=== PATIENT | male | born 1935 | race Caucasian/White ===

== ENCOUNTER 2017-10-03 02:18 | Outpatient (CLI) | payer MEDICARE ==
[~2017-10-03 02:18] MED LIST: ALBU8.5H8 IH; ASPI81TA52 PO; CARV-50 PO; CYCL-394 PO; FENO145T38 PO; FURO40TA4 PO; KETOCONAZOLE; LOSA25TA96 PO; METF500T PO; OMEP40CA37 PO; PIOG45TA5 PO; PRAV40TA3 PO; SPIR25TA5 PO
== END 2017-10-03 23:59 | disposition home or self-care (01) ==
LOC: DIABETIC 02:18
PROVIDERS: ATTEND Specialist
DX: E11.9 Type 2 diabetes mellitus without complications (principal); J44.9 Chronic obstructive pulmonary disease, unspecified; I10 Essential (primary) hypertension; Z79.899 Other long term (current) drug therapy; Z79.82 Long term (current) use of aspirin
CPT/HCPCS: G0108

== ENCOUNTER 2020-11-12 14:54 | Outpatient (CLI) | payer MEDICARE ==
[~2020-11-12 14:54] MED LIST changes: +ALBU8.5H17 IH; -ALBU8.5H8 IH; +OMEP40CA21 PO; -OMEP40CA37 PO
[2020-11-12 15:18] LABS: ABG BASE EXCESS -0.3 mmol/L (-2.0-2.0); ABG HCO3 24.1 mmol/L (22.0-26.0); ABG OXYGEN SATURATION 95.2 % (94-97); ABG PCO2 (T) 38.7 mmHg (35.0-48.0); ABG PO2 (T) 77.6 mmHg (75.0-100.0); ALLEN'S TEST POSITIVE; FCOHb 0.7 % (0.0-3.9); FMetHb 0.1 % (0.0-1.5); FO2Hb 94.4 % (94-97); TOTAL HEMOGLOBIN 13.4 G/dl (14.0-18.0)
== END 2020-11-12 23:59 | disposition home or self-care (01) ==
LOC: RT 14:54
PROVIDERS: ATTEND Family Medicine
DX: J96.10 Chronic respiratory failure, unspecified whether with hypoxia or hypercapnia (principal); G47.00 Insomnia, unspecified
CPT/HCPCS: 36600; 82803; 85018

== ENCOUNTER 2020-12-25 15:58 | Day surgery (SDC) | payer MEDICARE ==
[~2020-12-25] VITALS: Ht 177.8 cm; Wt 62.2 kg
[2020-12-25] VITALS (11 sets, daily range): BP systolic 110–131; BP diastolic 58–84
[2020-12-25 11:43] LABS: BASOPHILS # (AUTO) 0.1 X10'3 (0-0.2); EOSINOPHILS # (AUTO) 0.3 X10'3 (0-0.9); EOSINOPHILS % (AUTO) 6.1 % (0-6); HEMATOCRIT 40.3 % (42.0-52.0); LYMPHOCYTES # (AUTO) 1.1 X10'3 (1.1-4.8); LYMPHOCYTES % (AUTO) 20.2 % (21-51); MEAN CORPUSCULAR HEMOGLOBIN 25.4 PG (27.0-31.0); MEAN CORPUSCULAR HGB CONC 32.3 g/dL (33.0-36.5); MEAN CORPUSCULAR VOLUME 78.6 FL (78-98); MEAN PLATELET VOLUME 8.6 FL (7.4-10.4); MONOCYTES # (AUTO) 0.4 X10'3 (0-0.9); MONOCYTES % (AUTO) 7.7 % (2-12); NEUTROPHILS # (AUTO) 3.6 X10'3 (1.8-7.7); PLATELET COUNT 221 X10'3 (140-440); RED BLOOD COUNT 5.12 X10'6 (4.70-6.10); RED CELL DISTRIBUTION WIDTH 16.3 % (11.5-14.5); WHITE BLOOD COUNT 5.6 X10'3 (4.5-11.0)
[2020-12-25 11:49] LABS: ALBUMIN 3.7 G/DL (3.4-5.0); ANION GAP 10 (8-16); BLOOD UREA NITROGEN 25 MG/DL (7-18); BUN/CREATININE RATIO 16.9 (5.4-32.0); CALCIUM 8.3 MG/DL (8.5-10.1); CHLORIDE 107 MMOL/L (99-107); CREATININE 1.48 MG/DL (0.60-1.10); GLUCOSE 125 MG/DL (70-104); MAGNESIUM 2.2 MG/DL (1.5-2.4); POTASSIUM 4.2 MMOL/L (3.5-5.1); SODIUM 146 MMOL/L (135-145); TOTAL CARBON DIOXIDE 29.3 MMOL/L (24-32); eGFR 45 ML/MIN
--- NOTE | 2020-12-25 13:24 | NUR ---
Verbal order for 90mg of Maalox received by this RN from Dr. Preston during labourers procedure. 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
[~2020-12-25 15:58] MED LIST changes: +AMIO200T62 PO; +APIX5TAB3 PO; +BACL-11 PO; +CITA-124 PEG; +DIPH25CA51 PO; +FINA5TAB11 PO; +FLO0.4C PO; +FLUT1DIS11 INH; +GLIM4TAB7 PO; +INSU300I3 SUBCUT; +LIDOcaine 1% (10mg/ml)w/preservative injection 20ml MDV ONE; +LIDOcaine/PRILOcaine 5gm cream TP ONE; +MAGN250T11 PO; +POTA-197 PO; +PRAM0.129 PO; +SACU1TAB PO; +TRAZ-251 PO; +clopidogrel 300mg tablet ONE; +diphenhydrAMINE 25mg capsule PO PRN; +diphenhydrAMINE 50 mg/ml inj ONE; +fentaNYL/PF 50MCG/1 ML 2ML syringe ONE; +furosemide 40mg/4ml inj ONE; +heparin 1,000unit/ml 10ml vial 10 ML ONE; +iohexol 350 MG/ML 50ML vial IV ONE; +iohexol 350MG/ML 100ml bottle IV ONE; +mag hydrox/Alum hydrox/simeth 30ml oral suspension PO ONE; +midazolam 1 mg/ML 2ml injection ONE; +nitroGLYCERIN 0.4mg SUBLingual tab SL ONE; +nitroGLYCERIN-Tridil 50MG/D5W 250 ML IV ONE; +normal saline 1,000 ML IV SCH; +verapamil 2.5 mg/ml inj IV ONE
[2020-12-25] MEDS ORDERED: KETO15CR2 TP (16:09)
[2020-12-25] MEDS ORDERED: insulin Lispro (HumaLOG) vial - multi-dose SQ SCH (17:30)
[2020-12-25] MEDS ORDERED: glucagon, human recombinant 1mg kit SUBCUT PRN (17:30)
[2020-12-25] MEDS ORDERED: dextrose 50%-water 50ml dispensing syringe IV PRN ×2 (17:30)
[2020-12-25] MEDS ORDERED: MESSAGE TO PHARMACY PO ONE (17:30)
[2020-12-25] MEDS ORDERED: dextrose ORAL solution 15 GM/59 ML bottle PO PRN ×2 (17:30)
[2020-12-25] MEDS ORDERED: albuterol 2.5 MG/3 ML nebule NEB PRN (17:40)
--- NOTE | 2020-12-25 17:55 | NUR ---
pt turned in bed, changed linens, skin to coccyx intact , n o redness, heels jose luis, repositioned in bed
[2020-12-25] MEDS ORDERED: pantoprazole 40mg Tablet.DR PO STA (17:57)
--- NOTE | 2020-12-25 17:59 | NUR ---
received pt abot 15 min ago from Nicolasa MART . Pt c/o chest discomfort. no other symptoms, bg 103, 110/58, 96%. 67, 98.6, 16rr. contacted MD herrera at this time 1759 and received orders
--- NOTE | 2020-12-25 18:11 | NUR ---
radial site to R hand intact, instructed to deflate after midnoc since pt had elequis recently. r hand has good pleth on thumb and cap refill<2 sec and warm
--- NOTE | 2020-12-25 18:36 | NUR ---
Problems reprioritized. Patient report given at bedside, questions answered & plan of care reviewed , R radial site viewed and stable with Kaitlynn MART.
[2020-12-25] MEDS ORDERED: mag hydrox/Alum hydrox/simeth 30ml oral suspension PO ONE ×3 (19:30)
[2020-12-25] MEDS: tamsulosin 0.4mg capsule PO SCH (19:35)
[2020-12-25] MEDS: potassium Cl 20 mEq SR tablet PO SCH (19:35)
[2020-12-25] MEDS: furosemide 20MG tablet PO SCH (19:36)
[2020-12-25] MEDS: carVEDilol 12.5mg tablet PO SCH (19:36)
[2020-12-25] MEDS ORDERED: SALMETEROL INH SCH (20:00)
[2020-12-25] MEDS ORDERED: FLUTICASONE INH SCH (20:00)
[2020-12-25] MEDS: budesonide 0.5mg/2ml UD nebule IH SCH (20:00)
[2020-12-25] MEDS ORDERED: ketoconazole 2% cream 15gm TP SCH (20:00)
[2020-12-25] MEDS: pramipexole 0.25mg tablet PO SCH (20:43)
[2020-12-25] MEDS: normal saline 1000ml 1,000 ML IV SCH (20:45)
[2020-12-25] MEDS ORDERED: zolpidem 5mg tablet PO SCH (21:00)
[2020-12-25] MEDS ORDERED: traZODone 50mg tablet PO SCH (21:00)
[2020-12-25] MEDS ORDERED: baclofen 10mg tablet PO SCH (21:00)
[2020-12-25] MEDS ORDERED: insulin glargine (Lantus) pen - multi-dose SQ SCH (21:00)
[2020-12-26] MEDS: normal saline 1000ml 1,000 ML IV SCH ×2 (01:23→05:45)
[2020-12-26 02:00] VITALS: BP 116/58
[2020-12-26] MEDS: albuterol 2.5 MG/3 ML nebule NEB SCH ×2 (03:39→07:59)
[2020-12-26 06:00] VITALS: BP 129/67
--- NOTE | 2020-12-26 06:19 | NUR ---
Problems reprioritized. Patient report given, questions answered & plan of care reviewed with BARRON Patiño.
--- NOTE | 2020-12-26 06:20 | NUR ---
Rt paged, states his breathing "isn't great" , LS tight. sat 94%, r radial site cdi no hematoma.
[2020-12-26] MEDS ORDERED: clopidogrel 75mg tablet PO SCH ×2 (07:00→08:00)
--- NOTE | 2020-12-26 07:31 | NUR ---
3rd page since 609 and 1 call for RT. No reply yet. pt c/o sob. charge nurse notified
[2020-12-26] MEDS: tamsulosin 0.4mg capsule PO SCH (07:39)
[2020-12-26 07:41] VITALS: BP_SYST 124
[2020-12-26] MEDS: carVEDilol 12.5mg tablet PO SCH (07:41)
[2020-12-26] MEDS: furosemide 20MG tablet PO SCH (07:41)
[2020-12-26] MEDS: pramipexole 0.25mg tablet PO SCH (07:42)
[2020-12-26] MEDS: potassium Cl 20 mEq SR tablet PO SCH (07:50)
[2020-12-26] MEDS: budesonide 0.5mg/2ml UD nebule IH SCH (07:59)
[2020-12-26] MEDS ORDERED: citalopram 20mg tablet PEG SCH (08:00)
[2020-12-26] MEDS ORDERED: losartan 50mg tablet PO SCH (08:00)
[2020-12-26] MEDS ORDERED: amiodarone 200mg tablet PO SCH (08:00)
[2020-12-26] MEDS ORDERED: sacubitril/valsartan 24mg-26mg tablet PO SCH (08:00)
[2020-12-26] MEDS ORDERED: spironolactone 25 MG tablet PO SCH (08:00)
[2020-12-26] MEDS ORDERED: atorvastatin 10mg tablet PO SCH (08:00)
[2020-12-26] MEDS ORDERED: pantoprazole 40mg Tablet.DR PO SCH (08:00)
[2020-12-26] MEDS ORDERED: diphenhydrAMINE 25mg capsule PO SCH (08:00)
[2020-12-26] MEDS ORDERED: finasteride 5mg tablet PO SCH (08:00)
[2020-12-26] MEDS ORDERED: fenofibrate 145mg tablet PO SCH (08:00)
[2020-12-26] MEDS ORDERED: magnesium oxide 400mg tablet PO SCH (08:00)
[2020-12-26] MEDS ORDERED: INSULIN GLARGINE HUM REC ANLOG 80 UNIT SUBCUT SCH (08:00)
[2020-12-26] MEDS ORDERED: CLOP75TA34 PO (11:24)
--- NOTE | 2020-12-26 12:00 | NUR ---
1130- discharge [facility] completed, provided info for next meds due, iv removed cath intact and site stable, R radial puncture site cdi and no hematoma, vss, pt eating, ambulated 100 feet with walker ( has home walker). no longer sob after rt tx, has inhaler at home he says. void in toilet ok. son present, reviewed meds with pt and son as well as signs of bleeding and infection to report , lifting restrictions with R hand and no submersion, shower ok.
[2020-12-26] MEDS ORDERED: apixaban 5mg tablet PO SCH (16:00)
== END 2020-12-26 12:00 | disposition home or self-care (01) ==
LOC: PCU 3S 15:58 → SSTAY O 15:58
PROVIDERS: ATTEND Internal Medicine Cardiovascular Disease
DX: R94.39 Abnormal result of other cardiovascular function study (principal); R07.89 Other chest pain; I25.119 Atherosclerotic heart disease of native coronary artery with unspecified angina pectoris; I25.2 Old myocardial infarction; I25.5 Ischemic cardiomyopathy; E78.5 Hyperlipidemia, unspecified; I10 Essential (primary) hypertension; K21.9 Gastro-esophageal reflux disease without esophagitis; M19.90 Unspecified osteoarthritis, unspecified site; J44.9 Chronic obstructive pulmonary disease, unspecified; E11.9 Type 2 diabetes mellitus without complications; I48.91 Unspecified atrial fibrillation; Z85.51 Personal history of malignant neoplasm of bladder; Z88.8 Allergy status to other drugs, medicaments and biological substances; Z79.899 Other long term (current) drug therapy; Z79.01 Long term (current) use of anticoagulants; Z95.810 Presence of automatic (implantable) cardiac defibrillator; Z96.651 Presence of right artificial knee joint; Z98.890 Other specified postprocedural states
CPT/HCPCS: 36415; 80048; 82948; 83735; 85025; 85610; 92978; 93005; 93458; 94640; 99152; 99153; C1751; C1753; C1769; C1874; C1894; C9600; J1200; J1644; J1940; J2001; J2250; J3010; J7030; Q0163; Q9967; 94760; A4620; A5120; A6258; G0378; J1815; J3490; J7626

== ENCOUNTER 2021-12-07 15:47 | Inpatient (IN) | payer MEDICARE ==
[~2021-12-07] VITALS: Ht 177.8 cm; Wt 133.6 kg
[~2021-12-07 15:47] MED LIST changes: -ASPI81TA52 PO; -CITA-124 PEG; +CITA-124 PO; +CLOP75TA34 PO; -CYCL-394 PO; +KETO15CR2 TP; -KETOCONAZOLE; -LIDOcaine 1% (10mg/ml)w/preservative injection 20ml MDV ONE; -LIDOcaine/PRILOcaine 5gm cream TP ONE; -METF500T PO; -PIOG45TA5 PO; -clopidogrel 300mg tablet ONE; -diphenhydrAMINE 25mg capsule PO PRN; -diphenhydrAMINE 50 mg/ml inj ONE; -fentaNYL/PF 50MCG/1 ML 2ML syringe ONE; -furosemide 40mg/4ml inj ONE; -heparin 1,000unit/ml 10ml vial 10 ML ONE; -iohexol 350 MG/ML 50ML vial IV ONE; -iohexol 350MG/ML 100ml bottle IV ONE; -mag hydrox/Alum hydrox/simeth 30ml oral suspension PO ONE; -midazolam 1 mg/ML 2ml injection ONE; -nitroGLYCERIN 0.4mg SUBLingual tab SL ONE; -nitroGLYCERIN-Tridil 50MG/D5W 250 ML IV ONE; -normal saline 1,000 ML IV SCH; -verapamil 2.5 mg/ml inj IV ONE
[2021-12-07 18:50] LABS: BASOPHILS % (AUTO) 0.5 % (0-1); EOSINOPHILS # (AUTO) 0.1 X10'3 (0-0.9); EOSINOPHILS % (AUTO) 0.9 % (0-6); HEMATOCRIT 40.2 % (42.0-52.0); LYMPHOCYTES # (AUTO) 0.7 X10'3 (1.1-4.8); LYMPHOCYTES % (AUTO) 6.9 % (21-51); MEAN CORPUSCULAR HEMOGLOBIN 26.2 PG (27.0-31.0); MEAN CORPUSCULAR HGB CONC 32.3 g/dL (33.0-36.5); MEAN CORPUSCULAR VOLUME 81.3 FL (78-98); MEAN PLATELET VOLUME 8.4 FL (7.4-10.4); MONOCYTES # (AUTO) 0.7 X10'3 (0-0.9); MONOCYTES % (AUTO) 6.9 % (2-12); NEUTROPHILS # (AUTO) 8.6 X10'3 (1.8-7.7); NEUTROPHILS % (AUTO) 84.8 % (42-75); PLATELET COUNT 247 X10'3 (140-440); RED BLOOD COUNT 4.95 X10'6 (4.70-6.10); RED CELL DISTRIBUTION WIDTH 14.7 % (11.5-14.5); WHITE BLOOD COUNT 10.1 X10'3 (4.5-11.0)
[2021-12-07 19:06] LABS: ALANINE AMINOTRANSFERASE 28 U/L (12-78); ALBUMIN/GLOBULIN RATIO 1.3 (1.1-1.5); ALKALINE PHOSPHATASE 62 IU/L (46-116); ANION GAP 8 (8-16); ASPARTATE AMINO TRANSFERASE 17 U/L (10-37); BILIRUBIN,TOTAL 0.4 MG/DL (0.1-1.0); BLOOD UREA NITROGEN 46 MG/DL (7-18); BUN/CREATININE RATIO 19.9 (5.4-32.0); CALCIUM 8.7 MG/DL (8.5-10.1); CHLORIDE 101 MMOL/L (99-107); CREATININE 2.31 MG/DL (0.60-1.10); GLUCOSE 259 MG/DL (70-104); POTASSIUM 4.4 MMOL/L (3.5-5.1); SODIUM 138 MMOL/L (135-145); TOTAL CARBON DIOXIDE 29.5 MMOL/L (24-32); TOTAL PROTEIN 7.2 G/DL (6.4-8.2); eGFR 27 ML/MIN
[2021-12-07] MEDS ORDERED: BEBTELOVIMAB 175 MG/2 ML VIAL IV ONE (22:55)
[2021-12-07] MEDS ORDERED: normal saline 1000ML IV soln IVB ONE (22:55)
[2021-12-07] MEDS ORDERED: epiNEPHrine 1 mg/ml inj IM PRN (23:00)
[2021-12-07] MEDS ORDERED: famotidine/PF 10 mg/ml inj IV PRN (23:00)
[2021-12-07] MEDS ORDERED: diphenhydrAMINE 50 mg/ml inj IV PRN (23:00)
[2021-12-07] MEDS ORDERED: albuterol 2.5 MG/3 ML nebule NEB PRN (23:00)
[2021-12-07] MEDS ORDERED: acetaminophen 325mg tablet PO PRN ×3 (23:00→23:35)
[2021-12-07] MEDS ORDERED: hydrocortisone sod succ/PF 100mg/2ml inj. IV PRN (23:00)
[2021-12-07] MEDS ORDERED: mag hydrox/Alum hydrox/simeth 30ml oral suspension PO PRN (23:35)
[2021-12-07] MEDS ORDERED: morphine 2 MG/ML inj. syringe IV PRN ×2 (23:35)
[2021-12-07] MEDS ORDERED: DEXTROSE 15 GM of carb/4 tabs (each vial/BOTTLE has 4 tablets) PO PRN ×2 (23:35)
[2021-12-07] MEDS ORDERED: MESSAGE TO PHARMACY PO ONE (23:35)
[2021-12-07] MEDS ORDERED: glucagon, human recombinant 1mg kit SUBCUT PRN (23:35)
[2021-12-07] MEDS ORDERED: magnesium hydroxide 30ml (MOM) UD suspension PO PRN (23:35)
[2021-12-07] MEDS ORDERED: ondansetron/PF 4mg/2ml inj IV PRN (23:35)
[2021-12-07] MEDS ORDERED: dextrose 50%-water 50ml dispensing syringe IV PRN ×2 (23:35)
[2021-12-07] MEDS ORDERED: EMPA10TA PO (23:50)
[2021-12-07] MEDS ORDERED: DULA0.75 SQ (23:50)
[2021-12-08 00:03] LABS: HEMOGLOBIN A1C 10.1 % (4.5-6.2)
[2021-12-08 00:15] LABS: C-REACTIVE PROTEIN 1.55 MG/DL (0.0-0.5); FERRITIN 18 NG/ML (26-388); LACTATE DEHYDROGENASE 245 U/L (85-227)
[2021-12-08] MEDS ORDERED: dexamethasone 4mg/ml inj IV ONE (00:20)
[2021-12-08] MEDS: normal saline 1000ml 1,000 ML IV SCH ×2 (00:27→09:00)
[2021-12-08 00:41] LABS: CLARITY,URINE SLIGHTLY CLOUDY (Clear); COLOR,URINE YELLOW (Yellow); GLUCOSE, URINE >=1000 mg/dl (Neg); KETONES,URINE NEGATIVE (Neg); LEUKOCYTE ESTERASE ,URINE NEGATIVE (Neg); NITRITES, URINE NEGATIVE (Neg); OCCULT BLOOD,URINE LARGE (Neg); PH,URINE 6.5 (4.8-8.0); PROTEIN,URINE NEGATIVE (Neg); UROBILINOGEN,URINE 0.2 E.U/dL (0.2-1.0)
[2021-12-08 00:45] LABS: UA COLLECTION TYPE VOIDED
[2021-12-08 00:59] LABS: D-DIMER < 0.19 MG/L FEU (0-0.50)
[2021-12-08 01:00] LABS: RBC,URINE TNTC /HPF (0-2)
[2021-12-08 01:02] LABS: SQUAMOUS EPITHELIAL CELL,UR FEW /LPF (FEW)
[2021-12-08 01:04] LABS: BACTERIA,URINE FEW /HPF (Neg); WBC,URINE 20-30 /HPF (0-4)
[2021-12-08] MEDS ORDERED: ALBUTEROL INHALER 1 PUFF/90 MCG INHALation IH PRN (01:10)
--- NOTE | 2021-12-08 05:32 | NUR ---
Patient has been restless throughout noc, continues to have productive cough. Sat on edge of bed most of the night. Placed on hospital bed earlier for comfort. Isolation for covid has been maintained. Denies any pain at this time.
[2021-12-08 07:15] LABS: BASOPHILS % (AUTO) 0.2 % (0-1); EOSINOPHILS % (AUTO) 0.1 % (0-6); HEMATOCRIT 37.3 % (42.0-52.0); HEMOGLOBIN 12.2 g/dl (14.0-17.9); LYMPHOCYTES # (AUTO) 0.4 X10'3 (1.1-4.8); LYMPHOCYTES % (AUTO) 4.4 % (21-51); MEAN CORPUSCULAR HEMOGLOBIN 26.6 PG (27.0-31.0); MEAN CORPUSCULAR HGB CONC 32.8 g/dL (33.0-36.5); MEAN CORPUSCULAR VOLUME 81.1 FL (78-98); MEAN PLATELET VOLUME 8.4 FL (7.4-10.4); MONOCYTES # (AUTO) 0.2 X10'3 (0-0.9); MONOCYTES % (AUTO) 1.9 % (2-12); NEUTROPHILS # (AUTO) 8.2 X10'3 (1.8-7.7); NEUTROPHILS % (AUTO) 93.4 % (42-75); PLATELET COUNT 222 X10'3 (140-440); RED CELL DISTRIBUTION WIDTH 14.8 % (11.5-14.5); WHITE BLOOD COUNT 8.8 X10'3 (4.5-11.0)
[2021-12-08 07:27] LABS: D-DIMER < 0.19 MG/L FEU (0-0.50)
[2021-12-08 07:32] LABS: ALBUMIN 3.6 G/DL (3.4-5.0); ANION GAP 10 (8-16); BLOOD UREA NITROGEN 38 MG/DL (7-18); BUN/CREATININE RATIO 20.4 (5.4-32.0); C-REACTIVE PROTEIN 2.28 MG/DL (0.0-0.5); CALCIUM 8.6 MG/DL (8.5-10.1); CHLORIDE 104 MMOL/L (99-107); CREATININE 1.86 MG/DL (0.60-1.10); GLUCOSE 242 MG/DL (70-104); LACTATE DEHYDROGENASE 193 U/L (85-227); POTASSIUM 4.4 MMOL/L (3.5-5.1); SODIUM 141 MMOL/L (135-145); TOTAL CARBON DIOXIDE 27.5 MMOL/L (24-32); eGFR 35 ML/MIN
[2021-12-08] MEDS ORDERED: dexamethasone sod phosphate 4mg/ml inj. IV SCH (08:00)
[2021-12-08] MEDS ORDERED: dexamethasone inj 6 MG in dextrose 5%-water 50ml 50 ML IV SCH (08:00)
[2021-12-08] MEDS ORDERED: finasteride 5mg tablet PO SCH (08:00)
[2021-12-08] MEDS: CefTRIAXone/D5W-Rocephin 1gm 50 ML IV SCH (08:57)
[2021-12-08] MEDS: pantoprazole 40mg Tablet.DR PO SCH (08:57)
[2021-12-08] MEDS: citalopram 20mg tablet PO SCH (08:57)
[2021-12-08] MEDS: potassium Cl 20 mEq SR tablet PO SCH ×2 (08:57→20:48)
[2021-12-08] MEDS: docusate sod 100mg capsule PO SCH ×2 (08:57→20:47)
[2021-12-08] MEDS: tamsulosin 0.4mg capsule PO SCH ×2 (08:58→20:47)
[2021-12-08] MEDS: amiodarone 200mg tablet PO SCH (08:58)
[2021-12-08] MEDS: spironolactone 25 MG tablet PO SCH (08:58)
[2021-12-08] MEDS: apixaban 5mg tablet PO SCH ×2 (08:58→20:47)
[2021-12-08] MEDS: fenofibrate 145mg tablet PO SCH (08:58)
[2021-12-08] MEDS: pravastatin 40mg tablet PO SCH (08:59)
[2021-12-08] MEDS: sacubitril/valsartan 24mg-26mg tablet PO SCH (08:59)
[2021-12-08] MEDS: ADVAIR IH SCH (09:00)
[2021-12-08] MEDS: carVEDilol 12.5mg tablet PO SCH ×2 (09:01→20:48)
--- NOTE | 2021-12-08 13:14 | NUR ---
BLOOD SUGAR TAKEN, MEAL TRAY GIVEN.
[2021-12-08] MEDS ORDERED: ondansetron 4mg rapidly disintigrating tab PO PRN (14:40)
[2021-12-08] MEDS: insulin Lispro (HumaLOG) vial - multi-dose SQ SCH ×3 (15:32→22:41)
--- NOTE | 2021-12-08 15:55 | NUR ---
Patient in room ED 12. I have received report from BARB MART and had the opportunity to ask questions and assume patient care.
[2021-12-08 16:15] VITALS: BP 161/59
[2021-12-08 18:00] VITALS: BP 160/60
--- NOTE | 2021-12-08 18:51 | NUR ---
Report to Tess MART
[2021-12-08 20:00] VITALS: BP 161/59
[2021-12-08] MEDS ORDERED: dexamethasone 4mg/ml inj IV SCH (20:52)
[2021-12-08] MEDS: dexamethasone 4mg/ml inj IV SCH (20:59)
[2021-12-08] MEDS ORDERED: insulin glargine (Lantus) pen - multi-dose SQ SCH (21:00)
[2021-12-08] MEDS ORDERED: traZODone 50mg tablet PO SCH (21:00)
[2021-12-08] MEDS ORDERED: pramipexole 0.25mg tablet PO SCH (21:00)
[2021-12-08] MEDS ORDERED: baclofen 10mg tablet PO SCH (21:00)
--- NOTE | 2021-12-08 21:54 | NUR ---
found IV infiltrated. stopped fluids and will attempt to restart IV.
[2021-12-08 22:00] VITALS: BP 132/74
[2021-12-09 06:15] LABS: BASOPHILS % (AUTO) 0.1 % (0-1); EOSINOPHILS % (AUTO) 0 % (0-6); HEMATOCRIT 35.1 % (42.0-52.0); HEMOGLOBIN 11.7 g/dl (14.0-17.9); LYMPHOCYTES # (AUTO) 0.5 X10'3 (1.1-4.8); LYMPHOCYTES % (AUTO) 6.1 % (21-51); MEAN CORPUSCULAR HEMOGLOBIN 27.1 PG (27.0-31.0); MEAN CORPUSCULAR HGB CONC 33.3 g/dL (33.0-36.5); MEAN CORPUSCULAR VOLUME 81.3 FL (78-98); MEAN PLATELET VOLUME 8.8 FL (7.4-10.4); MONOCYTES # (AUTO) 0.3 X10'3 (0-0.9); MONOCYTES % (AUTO) 3.2 % (2-12); NEUTROPHILS # (AUTO) 7.9 X10'3 (1.8-7.7); NEUTROPHILS % (AUTO) 90.6 % (42-75); PLATELET COUNT 218 X10'3 (140-440); RED BLOOD COUNT 4.32 X10'6 (4.70-6.10); WHITE BLOOD COUNT 8.7 X10'3 (4.5-11.0)
--- NOTE | 2021-12-09 06:15 | NUR ---
Problems reprioritized. Patient report given, questions answered & plan of care reviewed with BARRON Miranda.
[2021-12-09 06:28] LABS: ALBUMIN 3.3 G/DL (3.4-5.0); ANION GAP 10 (8-16); BLOOD UREA NITROGEN 43 MG/DL (7-18); BUN/CREATININE RATIO 26.9 (5.4-32.0); C-REACTIVE PROTEIN 2.59 MG/DL (0.0-0.5); CALCIUM 8.7 MG/DL (8.5-10.1); CHLORIDE 103 MMOL/L (99-107); GLUCOSE 255 MG/DL (70-104); LACTATE DEHYDROGENASE 220 U/L (85-227); POTASSIUM 4.8 MMOL/L (3.5-5.1); SODIUM 137 MMOL/L (135-145); TOTAL CARBON DIOXIDE 24.5 MMOL/L (24-32); eGFR 41 ML/MIN
[2021-12-09 06:41] LABS: D-DIMER < 0.19 MG/L FEU (0-0.50)
--- NOTE | 2021-12-09 06:56 | NUR ---
Patient in room ORTHO 4018. I have received report from Tess and had the opportunity to ask questions and assume patient care.
[2021-12-09] MEDS: CefTRIAXone/D5W-Rocephin 1gm 50 ML IV SCH (08:03)
[2021-12-09] MEDS: spironolactone 25 MG tablet PO SCH (08:03)
[2021-12-09] MEDS: apixaban 5mg tablet PO SCH (08:03)
[2021-12-09] MEDS: docusate sod 100mg capsule PO SCH (08:03)
[2021-12-09] MEDS: fenofibrate 145mg tablet PO SCH (08:03)
[2021-12-09] MEDS: amiodarone 200mg tablet PO SCH (08:03)
[2021-12-09] MEDS: carVEDilol 12.5mg tablet PO SCH (08:03)
[2021-12-09] MEDS: potassium Cl 20 mEq SR tablet PO SCH (08:04)
[2021-12-09] MEDS: tamsulosin 0.4mg capsule PO SCH (08:04)
[2021-12-09] MEDS: dexamethasone 4mg/ml inj IV SCH (08:04)
[2021-12-09] MEDS: citalopram 20mg tablet PO SCH (08:04)
[2021-12-09] MEDS: pantoprazole 40mg Tablet.DR PO SCH (08:04)
[2021-12-09] MEDS: pravastatin 40mg tablet PO SCH (08:05)
[2021-12-09] MEDS: sacubitril/valsartan 24mg-26mg tablet PO SCH (08:05)
[2021-12-09] MEDS: insulin Lispro (HumaLOG) vial - multi-dose SQ SCH (08:31)
[2021-12-09 09:00] VITALS: BP 115/57
[2021-12-09] MEDS: ADVAIR IH SCH (09:00)
--- NOTE | 2021-12-09 09:30 | NUR ---
Diabetes consult: Pt w/ hx of DM A1c 10.1 per EMR. Pt on Covid isolation. Written DM ed w/ RD contact info placed in pt chart. May follow up w/ verbal ed once Pt out of isolation. Pt also noted on prior visits w/ non-healing wounds, documented w/ sores on each lower extremity per nursing assessment this admit. No WOC consult and no pictures in chart at this time. Will continue to monitor. Addendum: 12/09/21 at [address] Amended: Links added.
[2021-12-09] MEDS ORDERED: DEC4T PO (11:08)
== END 2021-12-09 12:30 | disposition home or self-care (01) | DRG 177 ==
LOC: ER 15:47 → ED HOLD 23:39 → ORTHO 4S 12-08 16:14
PROVIDERS: ADMIT Internal Medicine; ATTEND Family Medicine
PROC: XW033H6 Introduction of Other New Technology Monoclonal Antibody into Peripheral Vein, Percutaneous Approach, New Technology Group 6 (ICD-10-PCS; principal; 2021-12-07)
DX: U07.1 COVID-19 (principal); N17.0 Acute kidney failure with tubular necrosis; Z68.41 Body mass index [BMI] 40.0-44.9, adult; N39.0 Urinary tract infection, site not specified; E66.01 Morbid (severe) obesity due to excess calories; E78.5 Hyperlipidemia, unspecified; G47.00 Insomnia, unspecified; I25.10 Atherosclerotic heart disease of native coronary artery without angina pectoris; I50.9 Heart failure, unspecified; R03.0 Elevated blood-pressure reading, without diagnosis of hypertension; E11.22 Type 2 diabetes mellitus with diabetic chronic kidney disease; N18.9 Chronic kidney disease, unspecified; F32.A Depression, unspecified; I48.0 Paroxysmal atrial fibrillation; J44.9 Chronic obstructive pulmonary disease, unspecified; N40.0 Benign prostatic hyperplasia without lower urinary tract symptoms; Z95.5 Presence of coronary angioplasty implant and graft; Z79.899 Other long term (current) drug therapy; Z88.8 Allergy status to other drugs, medicaments and biological substances; I25.2 Old myocardial infarction
CPT/HCPCS: 36415; 71046; 80048; 80053; 81001; 82728; 82948; 83036; 83605; 83615; 83880; 84145; 84484; 85025; 85379; 86140; 87040; 87088; 87502; 87503; 87635; 93005; 94760; 99285; C9803; G0378; J0696; J1100; J1815; J7030; Q0222

== ENCOUNTER 2021-12-31 09:52 | Emergency (ER) | payer MEDICARE ==
[~2021-12-31] VITALS: Ht 177.8 cm; Wt 128.2 kg
[~2021-12-31 09:52] MED LIST changes: -CLOP75TA34 PO; -DIPH25CA51 PO; +DULA0.75 SQ; +EMPA10TA PO; -FURO40TA4 PO; -GLIM4TAB7 PO; -LOSA25TA96 PO; -MAGN250T11 PO
[2021-12-31 10:01] VITALS: BP 102/51
[2021-12-31 11:47] LABS: BASOPHILS % (AUTO) 0.6 % (0-1); EOSINOPHILS # (AUTO) 0.2 X10'3 (0-0.9); EOSINOPHILS % (AUTO) 3.8 % (0-6); HEMATOCRIT 38.5 % (42.0-52.0); HEMOGLOBIN 12.4 g/dl (14.0-17.9); LYMPHOCYTES # (AUTO) 0.7 X10'3 (1.1-4.8); LYMPHOCYTES % (AUTO) 14.3 % (21-51); MEAN CORPUSCULAR HEMOGLOBIN 25.6 PG (27.0-31.0); MEAN CORPUSCULAR HGB CONC 32.3 g/dL (33.0-36.5); MEAN CORPUSCULAR VOLUME 79.4 FL (78-98); MONOCYTES # (AUTO) 0.3 X10'3 (0-0.9); MONOCYTES % (AUTO) 6.5 % (2-12); NEUTROPHILS # (AUTO) 3.9 X10'3 (1.8-7.7); NEUTROPHILS % (AUTO) 74.8 % (42-75); PLATELET COUNT 221 X10'3 (140-440); RED BLOOD COUNT 4.86 X10'6 (4.70-6.10); RED CELL DISTRIBUTION WIDTH 15.5 % (11.5-14.5); WHITE BLOOD COUNT 5.2 X10'3 (4.5-11.0)
[2021-12-31 12:08] LABS: ALANINE AMINOTRANSFERASE 32 U/L (12-78); ALBUMIN 3.4 G/DL (3.4-5.0); ALBUMIN/GLOBULIN RATIO 1.1 (1.1-1.5); ALKALINE PHOSPHATASE 58 IU/L (46-116); ANION GAP 10 (8-16); ASPARTATE AMINO TRANSFERASE 23 U/L (10-37); BILIRUBIN,TOTAL 0.5 MG/DL (0.1-1.0); BLOOD UREA NITROGEN 33 MG/DL (7-18); BUN/CREATININE RATIO 17.7 (5.4-32.0); CALCIUM 9.1 MG/DL (8.5-10.1); CHLORIDE 99 MMOL/L (99-107); CREATININE 1.86 MG/DL (0.60-1.10); GLUCOSE 346 MG/DL (70-104); POTASSIUM 4.1 MMOL/L (3.5-5.1); SODIUM 138 MMOL/L (135-145); TOTAL CARBON DIOXIDE 29.2 MMOL/L (24-32); TOTAL PROTEIN 6.5 G/DL (6.4-8.2); eGFR 35 ML/MIN
== END 2021-12-31 14:00 | disposition home or self-care (01) ==
LOC: ER 09:53
DX: R06.02 Shortness of breath (principal); R42 Dizziness and giddiness; I11.9 Hypertensive heart disease without heart failure; E11.9 Type 2 diabetes mellitus without complications; Z88.8 Allergy status to other drugs, medicaments and biological substances; Z79.899 Other long term (current) drug therapy; Z79.1 Long term (current) use of non-steroidal anti-inflammatories (NSAID); Z79.2 Long term (current) use of antibiotics
CPT/HCPCS: 36415; 71046; 80053; 83605; 83880; 85025; 87040; 93005; 99285

== ENCOUNTER 2022-08-17 14:57 | Inpatient (IN) | payer MEDICARE ==
[~2022-08-17] VITALS: Ht 177.8 cm; Wt 131.8 kg
[~2022-08-17 14:57] MED LIST changes: -AMIO200T62 PO; +AMIO200T72 PO
[2022-08-17 16:10] LABS: BASOPHILS % (AUTO) 0.6 % (0-1); EOSINOPHILS # (AUTO) 0.3 X10'3 (0-0.9); HEMOGLOBIN 13.2 g/dl (14.0-17.9); LYMPHOCYTES # (AUTO) 0.7 X10'3 (1.1-4.8); LYMPHOCYTES % (AUTO) 10.8 % (21-51); MEAN CORPUSCULAR HEMOGLOBIN 24.3 PG (27.0-31.0); MEAN CORPUSCULAR HGB CONC 31.5 g/dL (33.0-36.5); MEAN CORPUSCULAR VOLUME 77.2 FL (78-98); MEAN PLATELET VOLUME 8.1 FL (7.4-10.4); MONOCYTES # (AUTO) 0.4 X10'3 (0-0.9); MONOCYTES % (AUTO) 6.3 % (2-12); NEUTROPHILS # (AUTO) 5.2 X10'3 (1.8-7.7); NEUTROPHILS % (AUTO) 78.3 % (42-75); PLATELET COUNT 272 X10'3 (140-440); RED BLOOD COUNT 5.44 X10'6 (4.70-6.10); RED CELL DISTRIBUTION WIDTH 17.9 % (11.5-14.5); WHITE BLOOD COUNT 6.6 X10'3 (4.5-11.0)
[2022-08-17 16:20] LABS: ALANINE AMINOTRANSFERASE 30 U/L (12-78); ALBUMIN 3.9 G/DL (3.4-5.0); ALBUMIN/GLOBULIN RATIO 1.3 (1.1-1.5); ALKALINE PHOSPHATASE 42 IU/L (46-116); ANION GAP 8 (8-16); ASPARTATE AMINO TRANSFERASE 22 U/L (10-37); BILIRUBIN,TOTAL 0.5 MG/DL (0.1-1.0); BLOOD UREA NITROGEN 47 MG/DL (7-18); BUN/CREATININE RATIO 19.9 (10.0-20.0); CALCIUM 8.7 MG/DL (8.5-10.1); CHLORIDE 100 MMOL/L (99-107); CREATININE 2.36 MG/DL (0.60-1.10); GLUCOSE 161 MG/DL (70-104); POTASSIUM 4.1 MMOL/L (3.5-5.1); SODIUM 138 MMOL/L (135-145); TOTAL CARBON DIOXIDE 30.1 MMOL/L (24-32); TOTAL PROTEIN 6.9 G/DL (6.4-8.2); eGFR 26 ML/MIN
[2022-08-17] MEDS ORDERED: potassium Cl 40MEQ/1/2NS 520ml 520 ML IV PRN (17:15)
[2022-08-17] MEDS ORDERED: potassium Cl 20 mEq SR tablet PO PRN ×2 (17:15)
[2022-08-17] MEDS ORDERED: aminophylline 250mg/10ml inj. IV PRN (17:15)
[2022-08-17] MEDS ORDERED: nitroGLYCERIN 0.4mg SUBLingual tab SL PRN (17:15)
[2022-08-17] MEDS ORDERED: metoprolol tartrate 1mg/ml inj IV PRN (17:15)
[2022-08-17] MEDS ORDERED: magnesium Cl slow-release 64mg tablet PO PRN (17:15)
[2022-08-17] MEDS ORDERED: magnesium 2GM in 50ml NS 50 ML IV PRN (17:15)
[2022-08-17] MEDS ORDERED: ondansetron/PF 4mg/2ml inj IV PRN (17:15)
[2022-08-17] MEDS ORDERED: regadenoson 0.4mg/5ml syringe IV PRN (17:15)
[2022-08-17] MEDS ORDERED: HYDROcodone/acetaminophen 5mg/325mg tablet PO PRN (17:15)
[2022-08-17] MEDS ORDERED: magnesium 4gm in 100ml NS 100 ML IV PRN (17:15)
[2022-08-17] MEDS ORDERED: morphine 2 MG/ML inj. syringe IV PRN (17:15)
[2022-08-17] MEDS ORDERED: acetaminophen 325mg tablet PO PRN ×2 (17:15)
[2022-08-17] MEDS: normal saline 1000ml 1,000 ML IV SCH (17:15)
[2022-08-17] MEDS ORDERED: baclofen 10mg tablet PO STA (20:31)
--- NOTE | 2022-08-17 21:09 | NUR ---
REPORT GIVEN TO HAULAGE BOSS
[2022-08-17 22:00] VITALS: BP 111/57
[2022-08-17 22:59] LABS: HEMOGLOBIN A1C 7.7 % (4.5-6.2)
[2022-08-17] MEDS ORDERED: traZODone 50mg tablet PO PRN (23:35)
[2022-08-17] MEDS: heparin, porcine 5000 units/ml vial SQ SCH (23:51)
[2022-08-18] VITALS (13 sets, daily range): BP systolic 87–117; BP diastolic 35–59
--- NOTE | 2022-08-18 02:43 | NUR ---
0240 pt reported light headedness and feeling "whoozie". vitals wnl @ 99o2, 54hr, 14rr, 117/57bp, after talking to pt for awhile he stated that he did just get up (stand up) to use urinal, asked if he got up quickly he stated he could have, will continue to monitor
[2022-08-18 06:22] LABS: BASOPHILS % (AUTO) 0.5 % (0-1); EOSINOPHILS # (AUTO) 0.5 X10'3 (0-0.9); EOSINOPHILS % (AUTO) 6.8 % (0-6); HEMOGLOBIN 12.3 g/dl (14.0-17.9); LYMPHOCYTES # (AUTO) 1.2 X10'3 (1.1-4.8); LYMPHOCYTES % (AUTO) 17.1 % (21-51); MEAN CORPUSCULAR HEMOGLOBIN 24.7 PG (27.0-31.0); MEAN CORPUSCULAR HGB CONC 32.2 g/dL (33.0-36.5); MEAN CORPUSCULAR VOLUME 76.7 FL (78-98); MEAN PLATELET VOLUME 8.3 FL (7.4-10.4); MONOCYTES # (AUTO) 0.6 X10'3 (0-0.9); MONOCYTES % (AUTO) 7.8 % (2-12); NEUTROPHILS # (AUTO) 4.9 X10'3 (1.8-7.7); NEUTROPHILS % (AUTO) 67.8 % (42-75); PLATELET COUNT 254 X10'3 (140-440); RED BLOOD COUNT 4.96 X10'6 (4.70-6.10); RED CELL DISTRIBUTION WIDTH 17.6 % (11.5-14.5); WHITE BLOOD COUNT 7.3 X10'3 (4.5-11.0)
--- NOTE | 2022-08-18 06:30 | NUR ---
Patient in room PCU 3012. I have received report from Rosendo PHILIPPE and had the opportunity to ask questions and assume patient care.
[2022-08-18 06:43] LABS: ALANINE AMINOTRANSFERASE 24 U/L (12-78); ALBUMIN 3.4 G/DL (3.4-5.0); ALBUMIN/GLOBULIN RATIO 1.3 (1.1-1.5); ALKALINE PHOSPHATASE 36 IU/L (46-116); ANION GAP 9 (8-16); ASPARTATE AMINO TRANSFERASE 17 U/L (10-37); BILIRUBIN,TOTAL 0.5 MG/DL (0.1-1.0); BLOOD UREA NITROGEN 44 MG/DL (7-18); BUN/CREATININE RATIO 20.6 (10.0-20.0); CALCIUM 8.4 MG/DL (8.5-10.1); CHLORIDE 103 MMOL/L (99-107); CREATININE 2.14 MG/DL (0.60-1.10); GLUCOSE 105 MG/DL (70-104); POTASSIUM 3.6 MMOL/L (3.5-5.1); SODIUM 139 MMOL/L (135-145); TOTAL CARBON DIOXIDE 27.4 MMOL/L (24-32); eGFR 30 ML/MIN
--- NOTE | 2022-08-18 07:23 | NUR ---
DM Consult: Pt admit DX r/o ACS w/ hx DM A1C 7.7% this admit Glu 105-156mg/dl not receiving DM meds and on heart healthy diet this admit per EMR. Pt A1C appropriate given age per ADA guidelines. Recommend NOT adding carb controlled diet restriction to better meet estimated needs given pt stature. Rec: 1. continue heart healthy diet; carb control restriction NOT INDICATED given age, A1C, and pt stature Addendum: 08/18/22 at [address] Amended: Links added.
[2022-08-18] MEDS: heparin, porcine 5000 units/ml vial SQ SCH ×3 (08:32→23:40)
--- NOTE | 2022-08-18 08:35 | NUR ---
BP 98/50, HR 55, pt c/o dizziness, unable to do stress test at this time, Kylie PHILIPPE and Mukesh MART aware
--- NOTE | 2022-08-18 08:45 | NUR ---
MESSAGE: Dr Mitchell, unable to do stress test on [facility], room 3012b, BP 98/50, HR 55, pt c/o dizziness Mukesh MART, Kylie GARCIAN
[2022-08-18] MEDS: carVEDilol 12.5mg tablet PO SCH ×2 (10:15→20:37)
[2022-08-18] MEDS: spironolactone 25 MG tablet PO SCH (10:15)
[2022-08-18] MEDS: amiodarone 200mg tablet PO SCH (10:56)
[2022-08-18] MEDS: EMPAGLIFLOZIN 10 MG TABLET PO SCH (10:57)
[2022-08-18] MEDS ORDERED: EMPA25TA PO (13:50)
[2022-08-18] MEDS ORDERED: BUME1TAB8 PO (13:50)
[2022-08-18] MEDS ORDERED: DULA1.5P SQ (13:50)
[2022-08-18] MEDS ORDERED: [UNRECOGNIZED DRUG - CODE] PO (13:50)
[2022-08-18] MEDS ORDERED: POTA-205 PO (13:50)
[2022-08-18] MEDS ORDERED: INSU200I (13:51)
[2022-08-18] MEDS ORDERED: MOME45CR3 TP (13:55)
[2022-08-18] MEDS: normal saline 1000ml 1,000 ML IV SCH ×2 (17:45→20:12)
--- NOTE | 2022-08-18 18:26 | NUR ---
Problems reprioritized. Patient report given, questions answered & plan of care reviewed with Kimmie MART.
[2022-08-18] MEDS ORDERED: albuterol 2.5 MG/3 ML nebule NEB PRN (19:30)
[2022-08-18] MEDS ORDERED: traZODone 50mg tablet PO PRN (19:30)
[2022-08-18] MEDS ORDERED: apixaban 5mg tablet PO SCH (20:00)
[2022-08-18] MEDS: sacubitril/valsartan 24mg-26mg tablet PO SCH (20:36)
[2022-08-18] MEDS: apixaban 2.5mg tablet PO SCH (20:37)
[2022-08-18] MEDS ORDERED: pravastatin 40mg tablet PO SCH (21:00)
[2022-08-18] MEDS: bumetanide 1mg tablet PO SCH (21:08)
--- NOTE | 2022-08-19 06:28 | NUR ---
Patient in room PCU 3012. I have received report from Kimmie MART and had the opportunity to ask questions and assume patient care.
[2022-08-19 07:00] VITALS: BP 98/40
--- NOTE | 2022-08-19 07:51 | NUR ---
Message: [id number] Edilma Grace Says shes leaving AMA due to lack of update. Kylie PHILIPPE [phone] Addendum: 08/19/22 at 1100 by Kylie GARCIAN Disregard- Noted for wrong patient
[2022-08-19] MEDS ORDERED: citalopram 20mg tablet PO SCH (08:00)
[2022-08-19] MEDS: EMPAGLIFLOZIN 10 MG TABLET PO SCH (08:00)
[2022-08-19] MEDS: carVEDilol 12.5mg tablet PO SCH (08:00)
[2022-08-19] MEDS: sacubitril/valsartan 24mg-26mg tablet PO SCH (08:00)
[2022-08-19] MEDS: bumetanide 1mg tablet PO SCH (08:00)
[2022-08-19] MEDS ORDERED: pantoprazole 40mg Tablet.DR PO SCH (08:00)
[2022-08-19] MEDS ORDERED: tamsulosin 0.4mg capsule PO SCH (08:00)
[2022-08-19] MEDS ORDERED: EMPAGLIFLOZIN 25 MG TABLET PO SCH (08:00)
[2022-08-19] MEDS ORDERED: finasteride 5mg tablet PO SCH (08:00)
[2022-08-19 08:23] LABS: BASOPHILS # (AUTO) 0.1 X10'3 (0-0.2); BASOPHILS % (AUTO) 0.9 % (0-1); EOSINOPHILS # (AUTO) 0.5 X10'3 (0-0.9); EOSINOPHILS % (AUTO) 6.8 % (0-6); HEMATOCRIT 41.8 % (42.0-52.0); HEMOGLOBIN 13.3 g/dl (14.0-17.9); LYMPHOCYTES # (AUTO) 1.3 X10'3 (1.1-4.8); LYMPHOCYTES % (AUTO) 18.4 % (21-51); MEAN CORPUSCULAR HEMOGLOBIN 24.8 PG (27.0-31.0); MEAN CORPUSCULAR HGB CONC 31.7 g/dL (33.0-36.5); MEAN CORPUSCULAR VOLUME 78.1 FL (78-98); MEAN PLATELET VOLUME 8.5 FL (7.4-10.4); MONOCYTES # (AUTO) 0.5 X10'3 (0-0.9); MONOCYTES % (AUTO) 7.4 % (2-12); NEUTROPHILS # (AUTO) 4.7 X10'3 (1.8-7.7); NEUTROPHILS % (AUTO) 66.5 % (42-75); PLATELET COUNT 270 X10'3 (140-440); RED BLOOD COUNT 5.36 X10'6 (4.70-6.10); RED CELL DISTRIBUTION WIDTH 17.7 % (11.5-14.5); WHITE BLOOD COUNT 7.1 X10'3 (4.5-11.0)
[2022-08-19] MEDS: spironolactone 25 MG tablet PO SCH (08:29)
[2022-08-19] MEDS: heparin, porcine 5000 units/ml vial SQ SCH (08:31)
[2022-08-19] MEDS: amiodarone 200mg tablet PO SCH (08:32)
[2022-08-19] MEDS: apixaban 2.5mg tablet PO SCH (08:33)
[2022-08-19 08:50] LABS: ALANINE AMINOTRANSFERASE 31 U/L (12-78); ALBUMIN 3.7 G/DL (3.4-5.0); ALBUMIN/GLOBULIN RATIO 1.3 (1.1-1.5); ALKALINE PHOSPHATASE 45 IU/L (46-116); ANION GAP 10 (8-16); ASPARTATE AMINO TRANSFERASE 19 U/L (10-37); BILIRUBIN,TOTAL 0.5 MG/DL (0.1-1.0); BLOOD UREA NITROGEN 39 MG/DL (7-18); BUN/CREATININE RATIO 18.9 (10.0-20.0); CALCIUM 8.7 MG/DL (8.5-10.1); CHLORIDE 101 MMOL/L (99-107); CREATININE 2.06 MG/DL (0.60-1.10); GLUCOSE 191 MG/DL (70-104); POTASSIUM 3.7 MMOL/L (3.5-5.1); SODIUM 139 MMOL/L (135-145); TOTAL CARBON DIOXIDE 27.9 MMOL/L (24-32); TOTAL PROTEIN 6.6 G/DL (6.4-8.2); eGFR 31 ML/MIN
[2022-08-19] MEDS ORDERED: INSU300I3 SUBCUT (10:41)
[2022-08-19 11:00] VITALS: BP 108/59
--- NOTE | 2022-08-19 13:28 | NUR ---
Patient discharged at 1315. He took all his belongings. IV and tele disconected and telebox given to [employer]. Patient was picked up by a family member and left in a private vehicle.
== END 2022-08-19 13:25 | disposition home health service (06) | DRG 391 ==
LOC: ER 14:57 → ED HOLD 17:17 → PCU 3S 21:15
PROVIDERS: ADMIT Internal Medicine; ATTEND Internal Medicine
PROC: 4A02XM4 Measurement of Cardiac Total Activity, External Approach (ICD-10-PCS; principal; 2022-08-18)
PROC: 3E073KZ Introduction of Other Diagnostic Substance into Coronary Artery, Percutaneous Approach (ICD-10-PCS; 2022-08-18)
DX: K21.9 Gastro-esophageal reflux disease without esophagitis (principal); N17.0 Acute kidney failure with tubular necrosis; I13.0 Hypertensive heart and chronic kidney disease with heart failure and stage 1 through stage 4 chronic kidney disease, or unspecified chronic kidney disease; N17.9 Acute kidney failure, unspecified; Z68.41 Body mass index [BMI] 40.0-44.9, adult; R07.89 Other chest pain; N18.9 Chronic kidney disease, unspecified; E11.22 Type 2 diabetes mellitus with diabetic chronic kidney disease; E78.00 Pure hypercholesterolemia, unspecified; E66.9 Obesity, unspecified; R41.3 Other amnesia; I50.9 Heart failure, unspecified; Z79.01 Long term (current) use of anticoagulants; Z79.84 Long term (current) use of oral hypoglycemic drugs; Z87.891 Personal history of nicotine dependence; Z95.5 Presence of coronary angioplasty implant and graft; Z88.8 Allergy status to other drugs, medicaments and biological substances; Z95.0 Presence of cardiac pacemaker; Z79.899 Other long term (current) drug therapy; I25.10 Atherosclerotic heart disease of native coronary artery without angina pectoris
CPT/HCPCS: 36415; 71045; 78452; 80053; 82948; 83036; 83605; 83880; 84484; 85025; 87040; 87081; 93005; 93017; 93306; 97116; 97161; 97530; 99285; A4615; A6258; A9500; G0378; J1644; J2785; J7030

== ENCOUNTER 2023-05-09 05:40 | Outpatient (CLI) | payer MEDICARE ==
[~2023-05-09 05:40] MED LIST changes: +BUME1TAB8 PO; +BUME2TAB7 PO; -DULA0.75 SQ; +DULA1.5P SQ; -EMPA10TA PO; +EMPA25TA PO; -FENO145T38 PO; -FLUT1DIS11 INH; +MOME45CR3 TP; -POTA-197 PO; +POTA-205 PO; +[UNRECOGNIZED DRUG - CODE] PO
== END 2023-05-09 23:59 | disposition home or self-care (01) ==
LOC: RT 05:40
PROVIDERS: ATTEND Family Medicine
DX: J44.9 Chronic obstructive pulmonary disease, unspecified (principal); I48.91 Unspecified atrial fibrillation; I50.9 Heart failure, unspecified; Z79.899 Other long term (current) drug therapy
CPT/HCPCS: 94618

== ENCOUNTER 2023-05-12 15:22 | Outpatient (CLI) | payer MEDICARE ==
[~2023-05-12] VITALS: Ht 213.4 cm; Wt 125.6 kg
[2023-05-12] MEDS: albuterol 2.5 MG/3 ML nebule NEB ONE (16:42)
[2023-05-12 16:46] VITALS: PULSE 81; RESP 16; O2SAT 97
== END 2023-05-12 23:59 | disposition home or self-care (01) ==
LOC: RT 15:22
PROVIDERS: ATTEND Family Medicine
DX: J44.9 Chronic obstructive pulmonary disease, unspecified (principal)
CPT/HCPCS: 94060; 94727; 94729; 94760

== ENCOUNTER 2023-10-13 20:06 | Inpatient (IN) | payer MEDICARE ==
[~2023-10-13] VITALS: Ht 177.8 cm; Wt 130.9 kg
[2023-10-13] MEDS: ipratropium/albuterol 3ml nebule NEB ONE (21:54)
[2023-10-13 21:55] VITALS: PULSE 81; RESP 24; O2SAT 96
[2023-10-13 22:04] VITALS: PULSE 78; RESP 22; O2SAT 98
[2023-10-13 22:10] LABS: MEAN CORPUSCULAR HEMOGLOBIN 27.2 PG (27.0-31.0)
[2023-10-13 22:12] LABS: BASOPHILS % (AUTO) 0.5 % (0-1); EOSINOPHILS # (AUTO) 0.6 X10'3 (0-0.9); EOSINOPHILS % (AUTO) 7.4 % (0-6); HEMATOCRIT 41.1 % (42.0-52.0); HEMOGLOBIN 13.6 g/dl (14.0-17.9); LYMPHOCYTES # (AUTO) 0.8 X10'3 (1.1-4.8); LYMPHOCYTES % (AUTO) 9.8 % (21-51); MEAN CORPUSCULAR HGB CONC 33.1 g/dL (33.0-36.5); MEAN CORPUSCULAR VOLUME 82.2 FL (78-98); MEAN PLATELET VOLUME 8.4 FL (7.4-10.4); MONOCYTES # (AUTO) 0.6 X10'3 (0-0.9); MONOCYTES % (AUTO) 8.2 % (2-12); NEUTROPHILS # (AUTO) 5.9 X10'3 (1.8-7.7); NEUTROPHILS % (AUTO) 74.1 % (42-75); PLATELET COUNT 243 X10'3 (140-440); RED BLOOD COUNT 4.99 X10'6 (4.70-6.10); RED CELL DISTRIBUTION WIDTH 15.5 % (11.5-14.5)
[2023-10-13 22:27] LABS: ALANINE AMINOTRANSFERASE 25 U/L (12-78); ALBUMIN 3.7 G/DL (3.4-5.0); ALKALINE PHOSPHATASE 55 IU/L (46-116); ANION GAP 9 (8-16); ASPARTATE AMINO TRANSFERASE 16 U/L (10-37); BILIRUBIN,TOTAL 0.7 MG/DL (0.1-1.0); BLOOD UREA NITROGEN 104 MG/DL (7-18); BUN/CREATININE RATIO 36.1 (10.0-20.0); CALCIUM 8.8 MG/DL (8.5-10.1); CHLORIDE 94 MMOL/L (99-107); CREATININE 2.88 MG/DL (0.60-1.10); GLUCOSE 144 MG/DL (70-104); POTASSIUM 3.6 MMOL/L (3.5-5.1); SODIUM 134 MMOL/L (135-145); TOTAL CARBON DIOXIDE 31.1 MMOL/L (24-32); TOTAL PROTEIN 7.5 G/DL (6.4-8.2); eCRCL 19 ML/MIN; eGFR 21 ML/MIN
[2023-10-13 22:29] LABS: ETHANOL < 10 MG/DL (<10)
[2023-10-13 22:49] LABS: BILIRUBIN,URINE NEGATIVE (Neg); CLARITY,URINE SLIGHTLY CLOUDY (Clear); COLOR,URINE YELLOW (Yellow); GLUCOSE, URINE NEGATIVE (Neg); KETONES,URINE NEGATIVE (Neg); LEUKOCYTE ESTERASE ,URINE NEGATIVE (Neg); NITRITES, URINE NEGATIVE (Neg); OCCULT BLOOD,URINE LARGE (Neg); PH,URINE 6.5 (4.8-8.0); PROTEIN,URINE NEGATIVE (Neg); UROBILINOGEN,URINE 0.2 E.U/dL (0.2-1.0)
[2023-10-13 22:54] LABS: UA COLLECTION TYPE URINAL
[2023-10-13 22:55] LABS: BACTERIA,URINE NONE SEEN /HPF (Neg); RBC,URINE 50-100 /HPF (0-2); SQUAMOUS EPITHELIAL CELL,UR FEW /LPF (FEW); WBC,URINE 0-4 /HPF (0-4)
[2023-10-13 22:56] LABS: HYALINE CASTS 0-3 /LPF (NEGATIVE)
[2023-10-14] VITALS (15 sets, daily range): BP systolic 79–118; BP diastolic 42–75; PULSE 70–93; RESP 16–18; TEMP 96.7–97.1; O2SAT 93–98
[2023-10-14] MEDS ORDERED: potassium Cl 20 mEq SR tablet PO PRN (00:15)
[2023-10-14] MEDS ORDERED: morphine 2 MG/ML inj. syringe IV PRN ×2 (00:15)
[2023-10-14] MEDS ORDERED: ondansetron/PF 4mg/2ml inj IV PRN (00:15)
[2023-10-14] MEDS ORDERED: acetaminophen 325mg tablet PO PRN (00:15)
[2023-10-14] MEDS ORDERED: magnesium sulf-water 2g/50mL 50 ML IV PRN (00:15)
[2023-10-14] MEDS ORDERED: magnesium sulf-water 4G/100mL 100 ML IV PRN (00:15)
[2023-10-14] MEDS ORDERED: magnesium Cl slow-release 64mg tablet PO PRN (00:15)
[2023-10-14] MEDS ORDERED: mag hydrox/Alum hydrox/simeth 30ml oral suspension PO PRN (00:15)
[2023-10-14] MEDS ORDERED: potassium Cl 40MEQ/1/2NS 520ml 520 ML IV PRN (00:15)
[2023-10-14] MEDS ORDERED: ipratropium/albuterol 3ml nebule NEB PRN ×2 (00:55→08:40)
[2023-10-14] MEDS: diphenhydrAMINE 25mg capsule PO PRN (01:57)
[2023-10-14 06:36] LABS: MAGNESIUM 2.9 MG/DL (1.5-2.4); POTASSIUM 3.2 MMOL/L (3.5-5.1)
[2023-10-14 06:44] LABS: HEMOGLOBIN A1C 7.6 % (4.5-6.2)
[2023-10-14] MEDS ORDERED: traZODone 50mg tablet PO PRN (07:35)
[2023-10-14] MEDS ORDERED: glucagon, human recombinant 1mg kit SUBCUT PRN (07:50)
[2023-10-14] MEDS ORDERED: DEXTROSE 15 GM of carb/4 tabs (each vial/BOTTLE has 4 tablets) PO PRN ×2 (07:50)
[2023-10-14] MEDS ORDERED: dextrose 50%-water 50ml dispensing syringe IV PRN ×2 (07:50)
[2023-10-14] MEDS ORDERED: spironolactone 25 MG tablet PO SCH (08:00)
[2023-10-14] MEDS ORDERED: heparin, porcine 5000 units/ml vial SQ SCH (08:00)
[2023-10-14] MEDS ORDERED: INSULIN GLARGINE HUM REC ANLOG 30 UNIT SUBCUT SCH (08:00)
[2023-10-14] MEDS ORDERED: sacubitril/valsartan 24mg-26mg tablet PO SCH (08:00)
[2023-10-14] MEDS: docusate sod 100mg capsule PO SCH (08:00)
[2023-10-14] MEDS: carvedilol 6.25mg tablet PO SCH (08:00)
[2023-10-14] MEDS: FENOFIBRATE 160MG PO SCH (08:00)
[2023-10-14] MEDS ORDERED: mometasone furoate 0.1% cream 15gm tube TP SCH (08:00)
[2023-10-14] MEDS: K and/or MAG REPLACEMENT MC SCH (08:00)
[2023-10-14] MEDS ORDERED: bumetanide 1mg tablet PO SCH ×2 (08:00→21:00)
[2023-10-14 08:14] LABS: ALANINE AMINOTRANSFERASE 25 U/L (12-78); ALBUMIN 4.1 G/DL (3.4-5.0); ALBUMIN/GLOBULIN RATIO 1.1 (1.1-1.5); ALKALINE PHOSPHATASE 52 IU/L (46-116); ASPARTATE AMINO TRANSFERASE 17 U/L (10-37); BILIRUBIN,DIRECT 0.2 MG/DL (0-0.3); BILIRUBIN,TOTAL 0.9 MG/DL (0.1-1.0); FREE T4 (FREE THYROXINE) 1.53 NG/DL (0.73-1.40); TOTAL PROTEIN 7.9 G/DL (6.4-8.2)
[2023-10-14 08:44] LABS: ANION GAP 12 (8-16); BLOOD UREA NITROGEN 92 MG/DL (7-18); BUN/CREATININE RATIO 35.9 (10.0-20.0); CALCIUM 9.4 MG/DL (8.5-10.1); CHLORIDE 94 MMOL/L (99-107); CREATININE 2.56 MG/DL (0.60-1.10); GLUCOSE 119 MG/DL (70-104); SODIUM 135 MMOL/L (135-145); eCRCL 21 ML/MIN; eGFR 24 ML/MIN
[2023-10-14] MEDS: apixaban 2.5mg tablet PO SCH (10:18)
[2023-10-14] MEDS: tamsulosin 0.4mg capsule PO SCH (10:18)
[2023-10-14] MEDS: amiodarone 200mg tablet PO SCH (10:18)
[2023-10-14] MEDS: citalopram 20mg tablet PO SCH (10:18)
[2023-10-14] MEDS: EMPAGLIFLOZIN 25 MG TABLET PO SCH (10:18)
[2023-10-14] MEDS: atorvastatin 10mg tablet PO SCH (10:19)
[2023-10-14] MEDS: finasteride 5mg tablet PO SCH (10:19)
[2023-10-14] MEDS: ketoconazole 2% cream 15gm TP SCH (10:19)
[2023-10-14] MEDS: pantoprazole 40mg Tablet.DR PO SCH (10:19)
[2023-10-14] MEDS: normal saline 500ml IV soln 500 ML IV ONE ×2 (10:24)
[2023-10-14] MEDS: potassium Cl 20 mEq SR tablet PO PRN (10:27)
[2023-10-14] MEDS: ipratropium/albuterol 3ml nebule NEB SCH (11:59)
[2023-10-14] MEDS ORDERED: PERFLUTREN PROTEIN-A MICROSPHR (Optison) 0.22 MG/ML 3ML VIAL IV ONE (13:10)
[2023-10-14] MEDS: INSULIN LISPRO 100 UNIT/ML INSULN.PEN MULTI-DOSE SQ SCH (13:16)
[2023-10-14] MEDS: prednisone 10mg tablet PO ONE (20:45)
[2023-10-14] MEDS: Melatonin 3mg tablet PO PRN (20:45)
[2023-10-14] MEDS: baclofen 10mg tablet PO SCH (20:46)
[2023-10-14] MEDS: pramipexole 0.25mg tablet PO SCH (21:06)
[2023-10-14] MEDS: HYDROcodone/acetaminophen 5mg/325mg tablet PO PRN (22:20)
[2023-10-15] VITALS (12 sets, daily range): BP systolic 89–111; BP diastolic 39–57; PULSE 65–85; RESP 16–20; TEMP 97.5–97.7; O2SAT 93–97
[2023-10-15 06:46] LABS: BASOPHILS % (AUTO) 0.3 % (0-1); EOSINOPHILS # (AUTO) 0.1 X10'3 (0-0.9); EOSINOPHILS % (AUTO) 1.4 % (0-6); HEMATOCRIT 40.3 % (42.0-52.0); HEMOGLOBIN 13.3 g/dl (14.0-17.9); LYMPHOCYTES # (AUTO) 0.5 X10'3 (1.1-4.8); LYMPHOCYTES % (AUTO) 5.8 % (21-51); MEAN CORPUSCULAR HEMOGLOBIN 27.2 PG (27.0-31.0); MEAN CORPUSCULAR HGB CONC 32.9 g/dL (33.0-36.5); MEAN CORPUSCULAR VOLUME 82.8 FL (78-98); MEAN PLATELET VOLUME 8.3 FL (7.4-10.4); MONOCYTES # (AUTO) 0.3 X10'3 (0-0.9); MONOCYTES % (AUTO) 4.4 % (2-12); NEUTROPHILS # (AUTO) 6.9 X10'3 (1.8-7.7); NEUTROPHILS % (AUTO) 88.1 % (42-75); PLATELET COUNT 232 X10'3 (140-440); RED BLOOD COUNT 4.87 X10'6 (4.70-6.10); RED CELL DISTRIBUTION WIDTH 15.4 % (11.5-14.5); WHITE BLOOD COUNT 7.8 X10'3 (4.5-11.0)
[2023-10-15 07:00] LABS: ALBUMIN 3.4 G/DL (3.4-5.0); ANION GAP 7 (8-16); BLOOD UREA NITROGEN 71 MG/DL (7-18); BUN/CREATININE RATIO 32.1 (10.0-20.0); CALCIUM 8.8 MG/DL (8.5-10.1); CHLORIDE 98 MMOL/L (99-107); CREATININE 2.21 MG/DL (0.60-1.10); GLUCOSE 209 MG/DL (70-104); MAGNESIUM 2.8 MG/DL (1.5-2.4); POTASSIUM 4.3 MMOL/L (3.5-5.1); SODIUM 133 MMOL/L (135-145); TOTAL CARBON DIOXIDE 27.6 MMOL/L (24-32); eCRCL 25 ML/MIN; eGFR 28 ML/MIN
[2023-10-15] MEDS: insulin glargine (Lantus) pen - multi-dose SQ SCH (07:55)
[2023-10-15] MEDS: mometasone furoate 0.1% ointment 15g TP SCH (09:00)
[2023-10-15] MEDS: normal saline 500ml IV soln 500 ML IV ONE (13:49)
[2023-10-16] VITALS (16 sets, daily range): BP systolic 96–111; BP diastolic 46–72; PULSE 69–84; RESP 14–19; TEMP 97.5–98.3; O2SAT 93–97
[2023-10-16 06:04] LABS: ALBUMIN 3.2 G/DL (3.4-5.0); ANION GAP 8 (8-16); BLOOD UREA NITROGEN 55 MG/DL (7-18); BUN/CREATININE RATIO 30.1 (10.0-20.0); CALCIUM 8.5 MG/DL (8.5-10.1); CHLORIDE 99 MMOL/L (99-107); CREATININE 1.83 MG/DL (0.60-1.10); GLUCOSE 136 MG/DL (70-104); MAGNESIUM 2.6 MG/DL (1.5-2.4); POTASSIUM 3.4 MMOL/L (3.5-5.1); SODIUM 135 MMOL/L (135-145); TOTAL CARBON DIOXIDE 27.7 MMOL/L (24-32); eCRCL 30 ML/MIN; eGFR 35 ML/MIN
[2023-10-16] MEDS: magnesium hydroxide 30ml (MOM) UD suspension PO PRN (10:17)
[2023-10-16 11:55] LABS: HEMOGLOBIN 13.1 G/DL (12.5-16.3); MEAN CORPUSCULAR HEMOGLOBIN 27.3 PG (27-31.2); MEAN CORPUSCULAR HGB CONC 33.6 % (32-36); MEAN CORPUSCULAR VOLUME 81.3 FL (81-97); PLATELET COUNT 226 X10'3 (130-400); RED CELL DISTRIBUTION WIDTH 15.2 % (11-16); WHITE BLOOD COUNT 8.5 X10'3 (4.5-11.0)
[2023-10-16 11:59] LABS: MM BASOPHILS % (MANUAL) 3 % (0-1); MM EOSINOPHILS % (MANUAL) 3 % (0-6); MM LYMPHOCYTES % (MANUAL) 10 % (21-51); MM MONOCYTES % (MANUAL) 8 % (2-12); MM NEUTROPHILS % (MANUAL) 76 % (42-75); MM TOTAL CELLS COUNTED 100
[2023-10-16 12:00] LABS: MM PLATELET ESTIMATE NORMAL; MM POLYCHROMASIA 1+; MM RBC MORPHOLOGY PERF
[2023-10-17] VITALS (7 sets, daily range): BP systolic 86–123; BP diastolic 49–65; PULSE 71–84; RESP 13–19; TEMP 97.4–97.8; O2SAT 92–94
[2023-10-17 05:37] LABS: ALBUMIN 3.2 G/DL (3.4-5.0); ANION GAP 8 (8-16); BLOOD UREA NITROGEN 49 MG/DL (7-18); CALCIUM 8.8 MG/DL (8.5-10.1); CHLORIDE 100 MMOL/L (99-107); CREATININE 1.75 MG/DL (0.60-1.10); GLUCOSE 147 MG/DL (70-104); MAGNESIUM 2.7 MG/DL (1.5-2.4); POTASSIUM 3.9 MMOL/L (3.5-5.1); SODIUM 134 MMOL/L (135-145); TOTAL CARBON DIOXIDE 26.1 MMOL/L (24-32); eCRCL 31 ML/MIN; eGFR 37 ML/MIN
[2023-10-17 05:38] LABS: BASOPHILS # (AUTO) 0.1 X10'3 (0-0.2); BASOPHILS % (AUTO) 0.8 % (0-1); EOSINOPHILS # (AUTO) 0.8 X10'3 (0-0.9); EOSINOPHILS % (AUTO) 9.1 % (0-6); HEMATOCRIT 39.7 % (42.0-52.0); HEMOGLOBIN 13.3 g/dl (14.0-17.9); LYMPHOCYTES # (AUTO) 1.1 X10'3 (1.1-4.8); LYMPHOCYTES % (AUTO) 13.4 % (21-51); MEAN CORPUSCULAR HEMOGLOBIN 27.6 PG (27.0-31.0); MEAN CORPUSCULAR HGB CONC 33.5 g/dL (33.0-36.5); MEAN CORPUSCULAR VOLUME 82.5 FL (78-98); MEAN PLATELET VOLUME 8.5 FL (7.4-10.4); MONOCYTES # (AUTO) 0.8 X10'3 (0-0.9); MONOCYTES % (AUTO) 8.9 % (2-12); NEUTROPHILS # (AUTO) 5.7 X10'3 (1.8-7.7); NEUTROPHILS % (AUTO) 67.8 % (42-75); PLATELET COUNT 239 X10'3 (140-440); RED BLOOD COUNT 4.81 X10'6 (4.70-6.10); RED CELL DISTRIBUTION WIDTH 15.3 % (11.5-14.5); WHITE BLOOD COUNT 8.4 X10'3 (4.5-11.0)
== END 2023-10-17 14:02 | DRG 312 ==
LOC: ER 20:06 → ED HOLD 10-14 00:22 → ORTHO 4S 10-14 01:32
PROVIDERS: ADMIT Internal Medicine Critical Care Medicine; ATTEND Family Medicine
DX: I95.1 Orthostatic hypotension (principal); N17.0 Acute kidney failure with tubular necrosis; I50.22 Chronic systolic (congestive) heart failure; M25.552 Pain in left hip; I11.0 Hypertensive heart disease with heart failure; I25.10 Atherosclerotic heart disease of native coronary artery without angina pectoris; I48.91 Unspecified atrial fibrillation; I50.9 Heart failure, unspecified; E78.00 Pure hypercholesterolemia, unspecified; E11.9 Type 2 diabetes mellitus without complications; T50.995A Adverse effect of other drugs, medicaments and biological substances, initial encounter; J44.9 Chronic obstructive pulmonary disease, unspecified; Z88.8 Allergy status to other drugs, medicaments and biological substances; Z95.5 Presence of coronary angioplasty implant and graft; I25.2 Old myocardial infarction; Y92.89 Other specified places as the place of occurrence of the external cause
CPT/HCPCS: 36415; 71045; 73502; 73700; 80048; 80053; 80076; 80320; 81001; 82948; 83036; 83605; 83735; 84439; 84443; 84484; 85007; 85025; 87040; 87081; 93306; 94640; 94760; 97110; 97116; 97161; 97530; 99285; A6213; A6222; A6446; A6449; A6590; G0378; J1815; J7030; J7040; J7512; Q0163

== ENCOUNTER 2024-01-08 12:07 | Outpatient (CLI) | payer MEDICARE ==
[~2024-01-08 12:07] MED LIST changes: -BACL-11 PO; -BUME1TAB8 PO; -BUME2TAB7 PO; -POTA-205 PO; -SPIR25TA5 PO
== END 2024-01-08 23:59 | disposition home or self-care (01) ==
LOC: RAD 12:07
PROVIDERS: ATTEND Student in an Organized Health Care Education/Training Program
DX: M51.379 Other intervertebral disc degeneration, lumbosacral region without mention of lumbar back pain or lower extremity pain (principal); R53.81 Other malaise; M53.3 Sacrococcygeal disorders, not elsewhere classified
CPT/HCPCS: 72110

== ENCOUNTER 2024-09-22 11:30 | Inpatient (IN) | payer MEDICARE ==
[2024-09-22] VITALS (12 sets, daily range): BP systolic 110; BP diastolic 52–60; PULSE 80–87; RESP 15–30; TEMP 97.4–97.5; O2SAT 94–97
[~2024-09-22] VITALS: Ht 177.8 cm; Wt 125.0 kg
[~2024-09-22 11:30] MED LIST changes: +APIX2.5T PO; -APIX5TAB3 PO; -CARV-50 PO; +CARV6.253 PO; -CITA-124 PO; +CLOB30CR11 TOP; -DULA1.5P SQ; +DUPI300P SUBCUT; -EMPA25TA PO; -FLO0.4C PO; -INSU300I3 SUBCUT; -KETO15CR2 TP; -MOME45CR3 TP; -OMEP40CA21 PO; -PRAM0.129 PO; +PRAV40TA17 PO; -PRAV40TA3 PO; +TAMS-55 PO; -TRAZ-251 PO; -[UNRECOGNIZED DRUG - CODE] PO
--- NOTE | 2024-09-22 11:39 | ELECTROCARDIOGRAPH REPORT ---
[facility] Test Date: 2024-09-22 Test Time: 11:37:00 Pat Name: KRISTY ALVARADO Department: [facility]- Patient ID: [id number] Room: [place] [address] Gender: M Development Intern: : 1935 Requested By: LAURITA GILES Order Number: [id number] Reading MD: Dr. Gurvinder Arango Measurements Intervals [place] Rate: 91 P: 93 MI: 182 QRS: -81 QRSD: 191 T: 100 QT: 454 QTc: 559 Interpretive Statements Sinus rhythm Right bundle branch block Baseline wander in lead(s) V1,V2 Electronically Signed On 09-25-2024 19:16:[address] Gurvinder Arango Please click the below link to view image of tracing.
[2024-09-22 11:53] LABS: MEAN PLATELET VOLUME 8.5 FL (7.4-10.4); RED CELL DISTRIBUTION WIDTH 16.4 % (11.5-14.5)
--- NOTE | 2024-09-22 12:03 | RADIOLOGY REPORT ---
DI CHEST,SINGLE VIEW, HISTORY: CP COMPARISON: DI CHEST,SINGLE VIEW on DOS: 06/24/24, DI CHEST,SINGLE VIEW on DOS: 12/15/23, DI CHEST,SIN GLE VIEW on DOS: 12/14/23 DI CHEST,SINGLE VIEW on DOS: 06/24/24, DI CHEST,SINGLE VIEW on DOS: 12/15/23, DI CHEST,SINGLE VIEW on DOS: 12/14/23 TECHNICAL DATA: 1 view of the chest was obtained. FINDINGS: Lines and tubes: Cardiac defibrillator is seen. Cardiomediastinal silhouette: Enlarged Pulmonary vasculature: Prominent Lung expansion: normal Lung airspace: normal Lung interstitium: normal Pleura: normal Pneumothorax: no Bones: Unremarkable Other: no IMPRESSION: Cardiomegaly with pulmonary vascular congestion.
[2024-09-22] MEDS: normal saline 1000ML IV soln IVB ONE (12:07)
[2024-09-22 12:25] LABS: CREATININE 1.72 MG/DL (0.60-1.10); PRO BRAIN NATRIURETIC PEPTIDE 2225 PG/ML (0-450); TOTAL CARBON DIOXIDE 29.4 MMOL/L (24-32); eCRCL 31 ML/MIN; eGFR 38 ML/MIN
--- NOTE | 2024-09-22 12:30 | Physician Documentation ---
History of Present Illness Chief Complaint: Chest Pain Stated Complaint: CP Time Seen by MD: 12:15 Mode of Arrival: Ambulatory HPI This is an 89-year-old male who presents by EMS with epigastric and substernal pain radiating across entire lower chest and upper abdomen described as burning onset after breakfast with associated nausea and vomiting. Reports that he had chest pain when EMS arrived though pain decreased after a dose of nitroglycerin. Patient reports feeling more short of breath recently, has had increased shortness of breath when laying flat and reports increased lower leg edema. Patient describes pain as 3/10 no reports frequent belching. Patient reports VT with stents in 2008. Medication Reconciliation Allergies: Coded Allergies: Sulfa (Sulfonamide Antibiotics) (Verified Allergy, Unknown, 06/24/24) itchy/rash lisinopril (Verified Allergy, Unknown, 06/24/24) Scheduled Amiodarone HCl* (Amiodarone HCl*), 1 TAB PO DAILY, (Reported) Apixaban (Eliquis), 1 TAB PO Q12H, (Reported) Bumetanide (Bumetanide), 1 TAB PO DAILY, (Reported) Citalopram Hydrobromide* (Celexa*), 1 TAB PO DAILY, (Reported) Clobetasol Propionate (Clobetasol Propionate), 1 APPLIC TOP DAILY, (Reported) Dupilumab (Dupixent Pen), 1 SYR SUBCUT Q2W, (Reported) Empagliflozin (Jardiance), 1 TAB PO DAILY, (Reported) Finasteride (Finasteride), 1 TAB PO DAILY, (Reported) Ketoconazole* (Nizoral*), 1 TAB PO DAILY, (Reported) Pramipexole Di-Hcl (Pramipexole Dihydrochloride), 1 TAB PO HS, (Reported) Pravastatin Sodium (Pravastatin Sodium), 1 TABLET PO DAILY, (Reported) Sacubitril/Valsartan (Entresto 24 mg-26 mg Tablet), 1 TAB PO BID, (Reported) Tamsulosin Hcl* (Flomax*), 1 CAP PO BID, (Reported) Scheduled PRN Albuterol Sulfate (Proair Hfa), 2 PUFFS IH Q4H PRN for SOB or wheezing, (Reported) Miscellaneous Medications Insulin Npl/Insulin Lispro (Humalog Mix 50-50 Kwikpen), 1 UNITS SQ, (Reported) Tirzepatide (Mounjaro), (Reported) Discontinued Medications Carvedilol (Carvedilol), 6.25 MG PO BID Discontinued Reason: patient no longer taking Tamsulosin Hcl* (Flomax*), 1 TAB PO DAILY Discontinued Reason: patient no longer taking Past Medical History Past Medical History: Atrial Fibrillation, Coronary Artery Disease, Congestive Heart Failure, High Cholesterol, Hypertension, COPD, Diabetes Past Surgical History: angioplasty, pacemaker Other Past Surgical History: Cardiac stents Patient History: [place] cancer age 78 FATHER, , Age: 60 years and older, Cause: Cancer MOTHER, , Age: 30's - 40, Cause: Deep vein thrombosis Alcohol Use: Occasionally Drug Use: none Lives with: Spouse Lives In: Home Occupation: retired Review of Systems All Other Systems at this time: Reviewed and Negative ROS Epigastric and substernal pain as stated above in the HPI, otherwise all systems are reviewed and negative. Constitutional: Denies: fever Physical Exam Vital Signs: RN Vital Signs have been reviewed: Yes, Temperature: 98.6, Source: Oral, Heart Rate: 74, Respiratory Rate: 24, BP: 131/67, Pulse Oximetry: 96, Weight: 125.000 Oxygen Flow Rate: 2.0 Physical Exam VITALS: Reviewed and as above. GENERAL: Alert, nontoxic appearing, mildly painful appearing RESPIRATORY: Mildly increased work of breathing, no respiratory distress, diminished lung sounds in all magana with mild end expiratory wheezes CHEST: Nontender to palpation CV: Regular rate and rhythm no murmur, 1+ lower extremity pitting edema bilaterally. GI: Abdomen distended dense soft with right upper quadrant and epigastric tenderness to palpation, bowel sounds present Progress Progress Note D/W Dr. Bro he agrees with plan for admission to hospitalist. IV abx, he will consult Results/Orders Reviewed/noted all lab results: Yes Results/Orders Orders - AINSLEY MARQUEZ Lipase (09/22/24 12:23) Liver Panel (09/22/24 12:23) Medications Received in ER Medications (Trade) Dose Ordered Sig/Noe Route PRN Reason Start Time Stop Time Status Last Admin Dose Admin (Nitrostat SL tablet) 0.4 mg Q5M PRN SL Chest pain Q5min PRNx3-call 09/22/24 12:05 09/22/24 12:07 0.4 MG (0.9% sodium chloride (NS) 1000ml IV soln) 1,000 ml ONCE ONCE IVB 09/22/24 12:05 09/22/24 12:06 DC 09/22/24 12:07 1,000 ML Vital Signs 09/22/24 09/22/24 09/22/24 11:33 11:47 11:48 Temp 98.6 Pulse 74 Resp 19 24 B/P (MAP) 131/67 Pulse Ox 95 96 O2 Delivery Nasal Cannula* O2 Flow Rate 2.0 2 FiO2 28 Laboratory Tests Test 09/22/24 11:44 White Blood Count 8.1 Red Blood Count 5.38 Hemoglobin 14.2 Hematocrit 43.9 Mean Corpuscular Volume 81.6 Mean Corpuscular Hemoglobin 26.5 L Mean Corpuscular Hemoglobin Concent 32.4 L Red Cell Distribution Width 16.4 H Platelet Count 241 Mean Platelet Volume 8.5 Neutrophils (%) (Auto) 73.6 Lymphocytes (%) (Auto) 13.9 L Monocytes (%) (Auto) 9.4 Eosinophils (%) (Auto) 2.3 Basophils (%) (Auto) 0.8 Neutrophils # (Auto) 5.9 Lymphocytes # (Auto) 1.1 Monocytes # (Auto) 0.8 Eosinophils # (Auto) 0.2 Basophils # (Auto) 0.1 CBC Comment Troponin I High Sensitivity 18 Chemistry Comments EKG/XRAY/CT/US/VASC/MRI Ultrasound : Impression US independently interpreted by myself shows no free fluid, 8mm anterior wall thickness with large stone in neck Medical Decision Making Findings This 89-year-old male with history of CHF, COPD, diabetes, and VT presented by with epigastric and sternal pain onset after eating breakfast, patient reported the chest pain decreased after dose of nitroglycerin by EMS however the epigastr ic pain persisted. Exam demonstrated visible shortness of breath and further questioning indicates patient has had increased shortness breath and lower edema recently, chest x-ray demonstrated cardiomegaly and evidence of vascular congestion, these findings are consistent with CHF exacerbation and supported by increased BNP on lab work. Due to patient's CHF exacerbation you would benefit from inpatient admission for further evaluation, monitoring and management. Differential Dx:Considerations: Include: Appendicitis, Bowel obstruction, Cholangitis Departure Disposition: ADMITTED INPATIENT Admitted to Inpatient Unit: to hospitalist Impression: Primary Impression: Acute exacerbation of CHF (congestive heart failure) Qualified Codes: I50.9 - Heart failure, unspecified Additional Impression: Cholecystitis Referrals: NO PRIMARY CARE PROVIDER (PCP) Signature Scribe Signature: na Attestation: AINSLEY Gregg Sep 22, 2024 12:30 LAURITA GILES MD Sep 22, 2024 15:13
[2024-09-22] MEDS ORDERED: pantoprazole 40mg IV 80 MG in normal saline 100ml IV soln 100 ML IV ONE (12:45)
[2024-09-22] MEDS: ondansetron/PF 4mg/2ml inj IV ONE (13:21)
[2024-09-22] MEDS: mag hydrox/Alum hydrox/simeth 30ml oral suspension PO ONE (13:25)
[2024-09-22] MEDS: CefTRIAXone 2gm/D5W 50ml BAG 50 ML IV ONE (13:54)
[2024-09-22] MEDS: furosemide 10 MG/1 ML 10ml inj IV ONE (13:54)
[2024-09-22] MEDS: metroNIDAZOLE-Flagyl 500mg/NS 100 ML IV STA (13:55)
[2024-09-22] MEDS: ipratropium/albuterol 3ml nebule NEB ONE (13:59)
--- NOTE | 2024-09-22 14:10 | RADIOLOGY REPORT ---
INDICATION: Right Upper and Episgastric Abd Pain TECHNIQUE: Multiple real-time sonographic images of the abdomen were obtained. COMPARISON: None FINDINGS: The liver is increased in echogenicity. The liver measures 18.3 cm. No intrahepatic biliar y ductal dilatation is noted. The gallbladder wall measures 0.8 cm and is unremarkable. There are multiple gallstones the largest measuring 2.2 cm. The common duct measures 0.9 cm and is unremarkable. No pericholecystic fluid is noted. Positive sonographic montana's sign. The right kidney measures 9.4 cm. No hydronephrosis. The pancreas is not well visualized due to obscuration from bowel gas. The visualized portions of the IVC and aorta are grossly unremarkable. IMPRESSION: 1. Gallstones and findings consistent with acute cholecystitis. 2. Hepatic steatosis.
[2024-09-22] MEDS ORDERED: CITA-178 PO (15:09)
[2024-09-22] MEDS ORDERED: EMPA25TA PO (15:09)
[2024-09-22] MEDS ORDERED: KETO200T15 PO (15:09)
[2024-09-22] MEDS ORDERED: PRAM0.129 PO (15:09)
[2024-09-22] MEDS ORDERED: TIRZ10PE SQ (15:09)
[2024-09-22] MEDS ORDERED: INSU100I7 SQ (15:09)
[2024-09-22] MEDS ORDERED: BUME2TAB7 PO (15:09)
[2024-09-22] MEDS ORDERED: TAMS-55 PO (15:09)
[2024-09-22] MEDS: albuterol 2.5 MG/3 ML nebule NEB ONE (15:20)
[2024-09-22] MEDS ORDERED: ondansetron/PF 4mg/2ml inj IV PRN (16:25)
[2024-09-22] MEDS ORDERED: potassium Cl 20 mEq SR tablet PO PRN (16:25)
[2024-09-22] MEDS ORDERED: magnesium sulf-water 4G/100mL 100 ML IV PRN (16:25)
[2024-09-22] MEDS ORDERED: magnesium sulf-water 2g/50mL 50 ML IV PRN (16:25)
[2024-09-22] MEDS ORDERED: heparin 10,000 units/1 ML INJ IV ONE (16:25)
[2024-09-22] MEDS ORDERED: potassium Cl 40MEQ/1/2NS 520ml 520 ML IV PRN (16:25)
[2024-09-22] MEDS: PERFLUTREN PROTEIN-A MICROSPHR (Optison) 0.22 MG/ML 3ML VIAL IV ONE (16:57)
[2024-09-22 17:55] LABS: MEAN PLATELET VOLUME 8.4 FL (7.4-10.4); RED CELL DISTRIBUTION WIDTH 16.6 % (11.5-14.5)
[2024-09-22 18:06] LABS: APTT 29 SECONDS (22-32); INR 1.1 INR
[2024-09-22] MEDS: heparin 25,000 UNIT/250ml bag 250 ML IV PRN (18:33)
[2024-09-22] MEDS: MESSAGE TO NURSING IV ONE (18:33)
[2024-09-22] MEDS: budesonide 0.5mg/2ml UD nebule IH SCH (19:13)
[2024-09-22] MEDS: ipratropium/albuterol 3ml nebule NEB SCH (19:13)
[2024-09-22] MEDS: K and/or MAG REPLACEMENT MC SCH (20:00)
[2024-09-22] MEDS: docusate sod 100mg capsule PO SCH (20:00)
--- NOTE | 2024-09-22 20:39 | HISTORY AND PHYSICAL ---
History & Physical Providers to CC ~ History of Present Illness Reason for Admit\Complaint: Acute respiratory failure/acute cholecystitis History of Present Illness This is an 89-year-old male who woke up this morning and developed significant right upper quadrant abdominal pain after eating he denies any fever or chills was nauseated however. The patient decided to come to the ED he also has a cough with clear sputum production and significantly shortness of breath x1 day- the patient is significantly tachypneic when I have initially evaluated him which did improve after receiving IV Lasix and the patient has significant right upper quadrant abdominal tenderness with a positive Moore sign on exam and an ultrasound demonstrated acute cholecystitis. ED physician Dr. Mensah spoke with on-call surgeon Dr. Cabrera who requested the patient be medically improved prior to obtaining surgery. The patient is on IV Zosyn. His echocardiogram demonstrates an unchanged LVEF from most recent echocardiogram from June of 2024. The patient takes Eliquis at home however this medicine we will need to be held due to likely up when come in surgery I did place the patient on a heparin drip since he is at high-risk for thrombotic event without the heparin bolus however. The patient is admitted to PCU. Allergies: Coded Allergies: Sulfa (Sulfonamide Antibiotics) (Verified Allergy, Unknown, 06/24/24) itchy/rash lisinopril (Verified Allergy, Unknown, 06/24/24) Home Medications Home Medications Active Reported Nizoral* (Ketoconazole) 200 Mg Tablet 1 Tab PO DAILY Pramipexole Dihydrochloride (Pramipexole Di-Hcl) 0.125 Mg Tablet 1 Tab PO HS Humalog Mix 50-50 Kwikpen (Insulin Npl/Insulin Lispro) 100 Unit/Ml (50-50) Insuln.pen 1 Units SQ Mounjaro (Tirzepatide) 10 Mg/0.5 Ml Pen.injctr Celexa* (Citalopram Hydrobromide) 20 Mg Tablet 1 Tab PO DAILY Flomax* (Tamsulosin HCl) 0.4 Mg Cap.sr.24h 1 Cap PO BID Bumetanide 2 Mg Tablet 1 Tab PO DAILY Jardiance (Empagliflozin) 25 Mg Tablet 1 Tab PO DAILY Eliquis (Apixaban) 2.5 Mg Tablet 1 Tab PO Q12H 30 Days Dupixent Pen (Dupilumab) 300 Mg/2 Ml Pen.injctr 1 Syr SUBCUT Q2W 28 Days Clobetasol Propionate 0.05 % Cream..g. 1 Applic TOP DAILY 30 Days apply to affected area(s) Finasteride 5 Mg Tablet 1 Tab PO DAILY Amiodarone HCl* (Amiodarone HCl) 200 Mg Tablet 1 Tab PO DAILY Entresto 24 mg-26 mg Tablet (Sacubitril/Valsartan) 1 Each Tablet 1 Tab PO BID Proair Hfa (Albuterol Sulfate) 8.5 Gm Hfa.aer.ad 2 Puffs IH Q4H PRN Pravastatin Sodium 40 Mg Tablet 1 Tablet PO DAILY Past Medical History Past Medical History HFrEF with a an LVEF of 20-25% 10/15/2023 COPD Hypertension Atrial fibrillation Fbk-evyonow-xsfxkipuz diabetes mellitus CAD Past Surgical History Surgical History Comment Appendectomy Bladder cancer surgery- cancer free Right hip pinning Left total knee arthroplasty Right ulnar wrist surgery AICD Family History Family History: [place] cancer age 78 FATHER, , Age: 60 years and older, Cause: Cancer MOTHER, , Age: 30's - 40, Cause: Deep vein thrombosis Past Social History Social History Comment Quit smoking cigarettes 1990,m rarely drinks alcohol denies any illicit drug use. Full code status however does not want to remain on life support for any extended period of time. ROS ROS Except for positives in the HPI the rest of the 14 point review systems is negative Exam Vitals: Vital Signs Date Time Temp Pulse Resp B/P (MAP) Pulse Ox O2 Delivery O2 Flow Rate FiO2 09/22/24 19:21 80 16 Nasal Cannula 3.0 09/22/24 19:14 97 32 09/22/24 19:03 98.6 115/59 (77) General: Gen. Moderate respiratory distress alert and oriented 4 Lungs coarse breath sounds are appreciated the bases which are also diminished Heart normal sinus rhythm no murmurs rubs or clicks noted Abdomen soft moderate to significant right upper quadrant tenderness with a positive Moore sign bowel sounds are normoactive Lower extremities no clubbing cyanosis, nor edema appreciated bilaterally Diagnostic Data Last Recorded Lab Results: 09/22/24 1745 09/22/24 1144 Diagnostic Data: Laboratory Tests Test 09/22/24 17:45 Prothrombin Time 11.3 SECONDS (9.0-12.0) INR International Normalized Ratio 1.1 INR Activated Partial Thromboplast Time 29 SECONDS (22-32) Coagulation Comments Additional Plan # acute cholecystitis IV Zosyn Dr. Cabrera surgeon was consulted by Dr. Mensah ED physician- who has requested that the patient be medically maximize and improve prior to surgery # acute respiratory failure likely multifactorial including Acute exacerbation of chronic COPD IV Solu-Medrol Scheduled DuoNeb Budesonide nebs Acute exacerbation of chronic HFrEF Continue Entresto Continue Jardiance No longer on carvedilol IV Lasix Echocardiogram demonstrates an LVEF of 20- 25% on the preliminary report # permanent atrial fibrillation Continue amiodarone Hold Apixaban for possible upcoming surgery On a heparin drip # rfc-ejtpxcb-fxbfrgqak diabetes mellitus And a hyper and hypoglycemic protocol # chronic kidney disease Monitor daily metabolic panel to evaluate for possible MAINOR And a hyper and hypoglycemic protocol Date of Service: Sep 22, 2024 Billing Provider: SHA MC DO Common Visit Codes: 84775-BRFIFXO INP/OBS CARE (HIGH) Secondary Visit Codes: [id number] CARE PLAN 30 MINUTES SHA MC DO Sep 22, 2024 20:39
[2024-09-22] MEDS ORDERED: non-formulary drug (Albuterol Sulfate (Proair Hfa) 2 PUFFS) IH PRN (20:45)
--- NOTE | 2024-09-22 21:39 | PROGRESS NOTE ---
Progress Note ID Providers to CC ~ Progress Note Progress Note: pt seen and examined-needs vilma atwood in am MIGUELITO DAVIS MD Sep 22, 2024 21:39
[2024-09-22] MEDS: methylPREDNISolone sod succ/PF 40mg inj. IV SCH (21:51)
[2024-09-22] MEDS: diatr meglu/diatrizoate 30ml oral sol.-(3 dose) bottle PO SCH (23:30)
[2024-09-23] VITALS (27 sets, daily range): BP systolic 100–169; BP diastolic 50–83; PULSE 69–89; RESP 15–33; TEMP 97.4–97.9; O2SAT 90–98
[2024-09-23] MEDS: piperacillin/tazo 3.375gm/50ml 50 ML IV SCH (01:07)
[2024-09-23] MEDS: MESSAGE TO NURSING IV ONE (02:30)
[2024-09-23] MEDS: heparin 10,000 units/1 ML INJ IV PRN (03:17)
[2024-09-23 06:26] LABS: MEAN PLATELET VOLUME 8.8 FL (7.4-10.4); RED CELL DISTRIBUTION WIDTH 16.0 % (11.5-14.5)
[2024-09-23 06:38] LABS: CREATININE 1.77 MG/DL (0.60-1.10); TOTAL CARBON DIOXIDE 29.1 MMOL/L (24-32); eCRCL 30 ML/MIN; eGFR 37 ML/MIN
[2024-09-23] MEDS ORDERED: BUPIVAcaine 2.5mg/ml inj 50ml vial (contains preservative) ONE ×2 (06:45→12:13)
[2024-09-23] MEDS ORDERED: ondansetron/PF 4mg/2ml inj IV PRN ×2 (07:30→14:55)
[2024-09-23] MEDS: ringers solution, lacted 1,000 ML IV SCH (07:30)
[2024-09-23] MEDS ORDERED: morphine 4 MG/ML inj SYRINge IV PRN (07:30)
[2024-09-23] MEDS ORDERED: enalaprilat 1.25mg/ml 2ml vial IV PRN (07:30)
[2024-09-23] MEDS ORDERED: hydrALAZINE 20mg/ml inj. IV PRN (07:30)
[2024-09-23] MEDS ORDERED: fentaNYL/PF 50MCG/1 ML 2ML syringe IV PRN (07:30)
[2024-09-23] MEDS: sacubitril/valsartan 24mg-26mg tablet PO SCH ×3 (08:00→22:49)
[2024-09-23] MEDS: KETOCONAZOLE 200 MG PO SCH (08:00)
[2024-09-23] MEDS: clobetasol 0.05% cream 30gm TP SCH (08:00)
[2024-09-23] MEDS: EMPAGLIFLOZIN 25 MG TABLET PO SCH (08:57)
--- NOTE | 2024-09-23 09:55 | RADIOLOGY REPORT ---
CHEST RADIOGRAPH Indication: ac resp failure Technique: Single frontal view of the chest was obtained Comparison: DI CHEST,SINGLE VIEW on DOS: 09/22/24, DI CHEST,SINGLE VIEW on DOS: 06/24/24, DI CHEST,SING LE VIEW on DOS: 12/15/23, DI CHEST,SINGLE VIEW on DOS: 12/14/23, DI CHEST,SINGLE VIEW on DOS: 10/13/23 FINDINGS: Lines and Tubes: None Lungs: No focal consolidation. Pleura: No effusion. No pneumothorax. Cardiomediastinal contours: Cardiomegaly Bones: No acute osseous abnormality. IMPRESSION: Cardiomegaly with CHF.
--- NOTE | 2024-09-23 11:02 | CARDIOLOGY REPORT ---
APPROVED REPORT EXAM: Limited 2D, Doppler, and color-flow Echocardiogram. Patient Location: ER 8 Blood Pressure: 121/67 mmHg Heart Rate: 81 bpm Rhythm: PACED Indications CONGESTIVE HEART FAILURE DIABETES HYPERTENSION RI 2008, STENT X4 ATRIAL FIBRILLATION, S/P AICD Net Making Supervisor: Kristen Preston DO Previous echo: 06/24/24 [facility] (EF 20-25%, trace AI, mild to moderate MR, trace TR) 2D Dimensions IVSd 1.0 (0.7-1.1cm) LVDd 7.1 cm PWd 1.1 (0.7-1.1cm) IVSs 1.1 (0.8-1.2cm) LVDs 6.6 (2.5-4.0cm) PWs 1.2 (0.8-1.2cm) LVOT Diameter 2.37 (1.8-2.4cm) LVEF(%) 23.0 (>50%) FS (%) 8.4 % SV 45.8 ml CO 6.5 L/min Aortic Valve AoV Peak Douglas. 167.4 cm/s AO Peak GR. 11.2 mmHg LEFT VENTRICLE Dilated LV size and normal wall thickness. Overall systolic function is severely reduced. LVEF is 20- 25%. RIGHT VENTRICLE RV size and function appear normal. Pacemaker wire in right heart. AORTIC VALVE Trileaflet AV appears mildly sclerotic without stenosis. Trace insufficiency. MITRAL VALVE Mild MV annular calcification without stenosis. Moderate regurgitation. TRICUSPID VALVE TV appears structurally normal with trace regurgitation. PERICARDIUM Normal pericardium. No effusion. Other Information Study Quality: Adequate, but difficult due to congestion and shortness of breath.
[2024-09-23 12:05] LABS: APTT 48 SECONDS (22-32)
--- NOTE | 2024-09-23 12:05 | PROGRESS NOTE ---
Progress Note ID Providers to CC ~ Progress Note Progress Note: pt needs miguel atwood-possible open-discussed procedure including risks/benefits/alternatives MIGUELITO DAVIS MD Sep 23, 2024 12:05
[2024-09-23] MEDS: insulin regular, human 10 units/0.1 ml syringe IV ONE (12:13)
[2024-09-23] MEDS ORDERED: fentaNYL/PF 50MCG/1 ML 2ML syringe ONE ×2 (12:35→13:35)
[2024-09-23] MEDS ORDERED: MIDAZolam 1 MG/ML 5ML VIAL ONE (12:35)
--- NOTE | 2024-09-23 13:02 | RADIOLOGY REPORT ---
Exam: CT CT ABDOMEN PELVIS W/ ORAL CONTRAST History: pain Comparison Study: None Technique: Multidetector spiral CT of the abdomen was performed from lung bases to pubic symphysis. I maging was performed without IV contrast. Axial, coronal and sagittal multiplanar reformats were obta ined from the axial data set by the technologist. Radiation Dose : 1. Abdomen/Pelvis: CTDIvol 35.8 mGy, DLP 2104.99 mGy*cm. Findings: Evaluation of solid organs is limited due to lack of intravenous contrast use. Lung Bases: Small bilateral pleural effusions. Liver: The liver is normal in size. No focal lesions. Gallbladder and Biliary Tree: Cholelithiasis noted without secondary findings of cholecystitis or evelio iary obstruction. Spleen: Unremarkable Pancreas: The pancreas is grossly normal in appearance. Adrenal Glands: Unremarkable Kidneys: Kidneys are grossly normal without calculi or hydronephrosis. Bladder: Grossly unremarkable for degree of distention. Bowel: The stomach is grossly normal in appearance. Diverticulosis. The appendix is not visualized; h owever, no secondary findings of acute appendicitis identified. Ascites: Absent Lymphadenopathy: No mesenteric, retroperitoneal or periportal lymphadenopathy. Abdominal Wall and Mesentery: Unremarkable. Vasculature: The visualized abdominal aorta is normal in size and caliber. There is extensive athero sclerotic calcification of the aorta and its branches. Evaluation of abdominal and pelvic vessels is limited due to lack of intravenous contrast. Pelvic Organs: Unremarkable Musculoskeletal: No aggressive focal bony lesions, acute fractures or dislocation. Degenerative carranza es of the spine. Right hip surgical hardware. IMPRESSION: Cholelithiasis noted without secondary findings of cholecystitis or biliary obstruction.
[2024-09-23] MEDS ORDERED: albumin (Human) 5% 250ml 250 ML IV ONE ×2 (13:09→13:20)
[2024-09-23] MEDS ORDERED: albumin (Human) 5% 250ml 500 ML IV ONE (13:18)
[2024-09-23] MEDS ORDERED: ondansetron/PF 4mg/2ml inj ONE (13:19)
[2024-09-23] MEDS ORDERED: LIDOcaine 2% (20mg/ml) 5ml vial ONE (13:20)
[2024-09-23] MEDS ORDERED: propofol inj 20 ML IV ONE (13:20)
[2024-09-23] MEDS ORDERED: phenylephrine 10mg/ml inj. ONE (13:20)
[2024-09-23] MEDS ORDERED: rocuronium 10mg/ml inj IV ONE ×2 (13:20→14:21)
[2024-09-23] MEDS ORDERED: desflurane 240ml liquid inh. IH ONE (13:20)
[2024-09-23] MEDS ORDERED: acetaminophen 1,000mg/100ml IV 100 ML IV ONE (13:22)
[2024-09-23] MEDS: BUPIVAcaine/PF 2.5 mg/ml (0.25%) 30ml vial IJ ONE (13:23)
[2024-09-23] MEDS ORDERED: metoprolol tartrate 1mg/ml inj IV ONE (14:09)
--- NOTE | 2024-09-23 14:53 | OPERATIVE REPORT ---
Operative Report Providers to CC CC: MIGUELITO DAVIS MD ~ Date of Procedure: Sep 23, 2024 Pre-Operative Diagnosis: cholelithiasis/cholecystitis Post-Operative Diagnosis SAME as PRE-Op Procedure Performed miguel atwood Surgeon: richard quijano Anesthesiologist: Malvin Farrell Type of Anesthesia: General Findings: cholecystitis/cholelithiasis Estimated Blood Loss: 100 ml Specimen Removed: gb MIGUELITO DAVIS MD Sep 23, 2024 14:53
[2024-09-23] MEDS ORDERED: HYDROcodone/acetaminophen 10/325mg tab PO PRN (14:55)
[2024-09-23] MEDS: fentaNYL/PF 50MCG/1 ML 2ML syringe IV PRN (15:15)
[2024-09-23] MEDS: HYDROmorphone inj. 0.5 MG/0.5 ML DISP.SYRIN IV ONE (16:10)
--- NOTE | 2024-09-23 19:15 | OPERATIVE REPORT ---
DATE OF SURGERY: 09/23/2024 DICTATING PHYSICIAN: Jaime Cabrera MD PREOPERATIVE DIAGNOSES: Cholelithiasis and cholecystitis. POSTOPERATIVE DIAGNOSES: Cholelithiasis and cholecystitis. PROCEDURE PERFORMED: Robotic cholecystectomy. SURGEON: Jaime Cabrera MD SYSTEMS SOFTWARE ENGINEER: None ANESTHESIA: General/Dr. Farrell. DRAINS: Matthew drain INDICATIONS FOR OPERATION: An 89-year-old male presented to the ER complaints abdominal pain, found to have cholelithiasis and acute cholecystitis, taken to surgery for robotic cholecystectomy. INTRAOPERATIVE FINDINGS: The patient had extensive adhesions in his right upper quadrant with severe cholecystitis. DESCRIPTION OF PROCEDURE: The patient was placed supine on the operating table. After induction of general anesthesia and placement of endotracheal tube, the abdomen was prepped and draped. A subumbilical incision was then made and Neva port placed using open technique and pneumoperitoneum was begun by insufflation of CO2. Additional ports were placed in the left lower quadrant and right lateral abdomen. Robot was then brought to the field. Camera port docked. Camera placed, camera targeted. Additional ports were then docked and instruments placed. Abdomen was then explored. Gallbladder fundus was grasped and retracted cephalad. After adhesions were taken down, exposed and examined the gallbladder. taken down to free up the gallbladder. Cystic duct identified, isolated, ligated, clipped and divided as was the cystic artery. The gallbladder was mobilized out of the gallbladder fossa. When hemostasis was found to be adequate, robotic instruments were removed. Robot undocked from the field. Gallbladder was placed in Endobag using laparoscope. Abdomen was copiously irrigated with large amount of antibiotic-containing solution. Ports were then removed with no active bleeding. The gallbladder was removed final port. Pneumoperitoneum was evacuated. Drain was placed prior to closure using a laparoscope. Wounds were closed in layers. Skin was closed with clips. Dressings applied. The patient was transferred to recovery in stable condition. Jaime Carbera MD TID: [id number] RECEIPT: [id number] ARTHUR/INDIRA/AUBREE
[2024-09-23] MEDS: potassium Cl 20 mEq SR tablet PO PRN (20:20)
[2024-09-23] MEDS: HYDROcodone/acetaminophen 10/325mg tab PO PRN (20:22)
--- NOTE | 2024-09-23 20:25 | PROGRESS NOTE ---
Daily Progress Note Providers to CC ~ Antibiotic Timeout Antibiotic Ordered?: Yes Subjective The patient is status post robotic laparoscopic cholecystectomy and it was discovered that he had significant amount of adhesions and had severe cholecystitis the patient is stable on 4 L oxygen currently the patient's informs me that the patient uses 2 L oxygen at home at night and when sleeping Objective Vital Signs Date Time Temp Pulse Resp B/P (MAP) Pulse Ox O2 Delivery O2 Flow Rate FiO2 09/23/24 20:15 76 18 Nasal Cannula 4.0 09/23/24 20:08 97 36 09/23/24 16:40 109/53 (71) 09/23/24 14:57 97.3 Result Diagram: 09/23/24 0550 09/23/24 0550 Gen. No acute distress alert and oriented 4 Lungs clear to ascultation bilaterally, no wheezes rales or rhonchi appreciated Heart normal sinus rhythm no murmurs rubs or clicks noted Abdomen soft significant generalized tenderness bowel sounds are normoactive Lower extremities no clubbing cyanosis, nor edema appreciated bilaterally Coagulation Studies Laboratory Tests Test 09/22/24 17:45 09/23/24 08:52 09/23/24 11:28 Prothrombin Time 11.3 SECONDS (9.0-12.0) INR International Normalized Ratio 1.1 INR APTT (Heparin Protocol) 100 SECONDS (45-60) *H Activated Partial Thromboplast Time 48 SECONDS (22-32) H Coagulation Comments Problem\Assessment\Plan # acute severe cholecystitis IV Zosyn 09/23 status post laparoscopic robotic cholecystectomy with adhesion lysis On a clear liquid diet # acute respiratory failure (with nocturnal oxygen use of 2 L at home also while sleeping) likely multifactorial including Acute exacerbation of chronic COPD IV Solu-Medrol Scheduled DuoNeb Budesonide nebs Acute exacerbation of chronic HFrEF Continue Entresto Continue Jardiance No longer on carvedilol IV bumetanide Echocardiogram demonstrates an LVEF of 20- 25% on the preliminary report # permanent atrial fibrillation Continue amiodarone Restart home dose of apixaban # ksd-tnmrrjd-bpgygkhji diabetes mellitus And a hyper and hypoglycemic protocol # chronic kidney disease Monitor daily metabolic panel to evaluate for possible MAINOR Date of Service: Sep 23, 2024 Billing Provider: SHA MC DO Common Visit Codes: [id number] INP/OBS CARE(HIGH) SHA MC DO Sep 23, 2024 20:25
[2024-09-24] VITALS (16 sets, daily range): BP systolic 95–105; BP diastolic 41–55; PULSE 64–78; RESP 12–20; TEMP 96.8–98; O2SAT 93–97
--- NOTE | 2024-09-24 05:45 | CONSULTATION ---
DATE OF CONSULTATION: 09/22/2024 DICTATING PHYSICIAN: Jaime Cabrera MD REASON FOR CONSULTATION: Evaluation of abdominal pain. HISTORY OF PRESENT ILLNESS: The patient is an 89-year-old male with multiple medical problems including COPD, CHF, hypertension, atrial fibrillation, diabetes, coronary artery disease, presented to the ER with complaints of abdominal discomfort. Ultrasound is suggestive of cholecystitis. Surgical evaluation is now requested. On further questioning, the patient has severe right upper quadrant pain. He has had some nausea. No fever or chills. No history of peptic ulcer disease. PAST MEDICAL HISTORY: Notable for: * COPD. * CHF with diminished LV function. * Hypertension. * Atrial fibrillation. * Diabetes. * Coronary artery disease. PAST SURGICAL HISTORY: Includes: * Previous appendectomy. * Bladder cancer. * Right hip procedure. * Total knee. * AICD placement. * Wrist procedure. HOME MEDICATIONS: Include Zyloprim, pramipexole, Humalog, Mounjaro, Celexa, Flomax, Bumex, Jardiance, Eliquis, , finasteride, amiodarone, Entresto, ProAir, and pravastatin. ALLERGIES: INCLUDE SULFA AND LISINOPRIL. SOCIAL HISTORY: Remote history of tobacco use. Rare alcohol use. PHYSICAL EXAMINATION: GENERAL: A well-nourished, obese male, in minimal distress. VITAL SIGNS: Unremarkable. HEART: Regular rate and rhythm. LUNGS: Clear to auscultation. ABDOMEN: Right upper quadrant tenderness. EXTREMITIES: Unremarkable. NEUROLOGIC: Nonfocal. LABORATORY DATA: Include WBC of 9.7, hematocrit 46, platelet count is 228. Chemistries; BUN and creatinine 40 and 1.77. LFTs are unremarkable. IMAGING STUDIES: Gallbladder ultrasound confirms the presence of cholelithiasis with cholecystitis, 0.[address] of the abdomen and pelvis shows cholelithiasis. IMPRESSION: * Cholelithiasis and cholecystitis. * Congestive heart failure with diminished left ventricular function. * Chronic obstructive pulmonary disease. * Coronary artery disease. * Diabetes. * Hypertension. * Atrial fibrillation. RECOMMENDATIONS: Robotic cholecystectomy, possible open. IV antibiotics. Jaime Cabrera MD TID: [id number] RECEIPT: [id number] KB/CORNEL/LAURA
[2024-09-24 06:06] LABS: MEAN PLATELET VOLUME 8.7 FL (7.4-10.4); RED CELL DISTRIBUTION WIDTH 16.3 % (11.5-14.5)
[2024-09-24 06:23] LABS: CREATININE 1.59 MG/DL (0.60-1.10); TOTAL CARBON DIOXIDE 33.2 MMOL/L (24-32); eCRCL 34 ML/MIN; eGFR 41 ML/MIN
[2024-09-24] MEDS: HYDROmorphone inj. 0.5 MG/0.5 ML DISP.SYRIN IV PRN (07:41)
[2024-09-24] MEDS ORDERED: dextrose 50%-water 50ml dispensing syringe IV PRN ×2 (08:40)
[2024-09-24] MEDS ORDERED: DEXTROSE 15 GM of carb/4 tabs (each vial/BOTTLE has 4 tablets) PO PRN ×2 (08:40)
[2024-09-24] MEDS ORDERED: glucagon, human recombinant 1mg kit SUBCUT PRN (08:40)
[2024-09-24] MEDS: INSULIN LISPRO 100 UNIT/ML INSULN.PEN MULTI-DOSE SQ SCH ×3 (11:17→21:51)
--- NOTE | 2024-09-24 14:40 | PROGRESS NOTE ---
Progress Note ID Providers to CC ~ Progress Note Progress Note: complains of pain/vss/abd-mild distention/labs noted a/p 1. s/p angelic-slow progress/cont supportive care MIGUELITO DAVIS MD Sep 24, 2024 14:40
--- NOTE | 2024-09-24 18:19 | PROGRESS NOTE ---
Daily Progress Note Providers to CC ~ Antibiotic Timeout Antibiotic Ordered?: Yes Subjective The patient was complaining of significant amount of abdominal discomfort and cramping- moments after I evaluated the patient Dr. Cabrera was walking down the [place] and went and evaluated the patient and assessed that this is not a typical and that is the patient is to expect significant amount of discomfort since the patient had a marked adhesions and a severely diseased gallbladder. The patient's blood sugars are uncontrolled I have adjusted the patient's insulin and added postprandial insulin and Lantus as well as change to the high dose sliding scale. Objective Vital Signs Date Time Temp Pulse Resp B/P (MAP) Pulse Ox O2 Delivery O2 Flow Rate FiO2 09/24/24 18:07 16 09/24/24 15:46 70 Nasal Cannula 3.0 09/24/24 15:42 93 32 09/24/24 15:00 97.1 102/45 (64) Result Diagram: 09/24/24 0540 09/24/24 0540 Gen. No acute distress alert and oriented 4 Lungs clear to ascultation bilaterally, no wheezes rales or rhonchi appreciated Heart normal sinus rhythm no murmurs rubs or clicks noted Abdomen soft moderate generalized tenderness bowel sounds are normoactive Lower extremities no clubbing cyanosis, nor edema appreciated bilaterally Coagulation Studies Laboratory Tests Test 09/22/24 17:45 09/23/24 08:52 09/23/24 11:28 Prothrombin Time 11.3 SECONDS (9.0-12.0) INR International Normalized Ratio 1.1 INR APTT (Heparin Protocol) 100 SECONDS (45-60) *H Activated Partial Thromboplast Time 48 SECONDS (22-32) H Coagulation Comments Problem\Assessment\Plan # acute severe cholecystitis IV Zosyn 09/23 status post laparoscopic robotic cholecystectomy with adhesion lysis On a clear liquid diet 09/24 the patient continues to experience significant abdominal discomfort and cramping which per is to be expected due to the amount of adhesions the patient had in the severity of the patient's gallbladder disease/cholecystitis and anticipate the patient will be here hospitalized for a couple of more days # acute respiratory failure (with nocturnal oxygen use of 2 L at home also while sleeping) likely multifactorial including Acute exacerbation of chronic COPD IV Solu-Medrol Budesonide nebs 09/24 change DuoNeb to PRN as respiratory therapy assessed that the patient is possibly experiencing mild bronchial spasms with DuoNeb #Acute exacerbation of chronic HFrEF Continue Entresto Continue Jardiance No longer on carvedilol IV bumetanide Echocardiogram demonstrates an LVEF of 20- 25% on the preliminary report # permanent atrial fibrillation Continue amiodarone Restart home dose of apixaban # zjl-vcnhckx-nwtyxqvgz diabetes mellitus And a hyper and hypoglycemic protocol 09/24 blood glucose is poorly controlled and changed to a high dose sliding scale as well as added Lantus and postprandial insulin # chronic kidney disease Monitor daily metabolic panel to evaluate for possible MAINOR Disposition: Likely home in 2-3 days. Date of Service: Sep 24, 2024 Billing Provider: SHA MC DO Common Visit Codes: [id number] INP/OBS CARE(HIGH) SHA MC DO Sep 24, 2024 18:19
[2024-09-24] MEDS: insulin glargine (Lantus) pen - multi-dose SQ SCH (21:52)
[2024-09-24] MEDS: sacubitril/valsartan 24mg-26mg tablet PO SCH (22:05)
[2024-09-25] VITALS (12 sets, daily range): BP systolic 84–112; BP diastolic 50–63; PULSE 73–115; RESP 9–19; TEMP 96.7–98.8; O2SAT 86–96
[2024-09-25] MEDS: HYDROcodone/acetaminophen 5mg/325mg tablet PO PRN (00:20)
[2024-09-25 05:50] LABS: MEAN PLATELET VOLUME 8.6 FL (7.4-10.4); RED CELL DISTRIBUTION WIDTH 16.5 % (11.5-14.5)
[2024-09-25 06:27] LABS: CREATININE 1.68 MG/DL (0.60-1.10); TOTAL CARBON DIOXIDE 30.3 MMOL/L (24-32); eCRCL 32 ML/MIN; eGFR 39 ML/MIN
[2024-09-25] MEDS: magnesium hydroxide 30ml (MOM) UD suspension PO PRN (07:41)
[2024-09-25] MEDS: albuterol 2.5 MG/3 ML nebule NEB PRN (07:43)
[2024-09-25] MEDS ORDERED: metoclopramide 5 mg/ml inj IV PRN (10:55)
--- NOTE | 2024-09-25 11:20 | ELECTROCARDIOGRAPH REPORT ---
[facility] Test Date: 2024-09-25 Test Time: 11:18:10 Pat Name: KRISTY ALVARADO Department: 3rd FLOOR PCU Room: [facility] [address] Gender: M Latcher: : [id number] Requested By: AMOS FLORES Order Number: [id number] Reading MD: Dr. KOBY Gordon Measurements Intervals [place] Rate: 111 P: 0 [place]: 0 QRS: -98 QRSD: 186 T: 63 QT: 444 QTc: 604 Interpretive Statements V paced rhythm. , atrial rhythm? AF Right bundle branch block Electronically Signed On 09-25-2024 15:32:[address] KOBY Gordon Please click the below link to view image of tracing.
[2024-09-25] MEDS ORDERED: sacubitril/valsartan 24mg-26mg tablet PO SCH (11:45)
[2024-09-25] MEDS: mag hydrox/Alum hydrox/simeth 30ml oral suspension PO PRN (12:23)
[2024-09-25] MEDS: bisacodyl 10mg suppository rectal RC STA (12:24)
--- NOTE | 2024-09-25 18:07 | PROGRESS NOTE ---
Daily Progress Note Providers to CC ~ Antibiotic Timeout Antibiotic Ordered?: Yes Subjective Patient was seen in presence of his both are very poor historian but is very much concerned about his going to rehab. He wanted more and more laxative for constipation. Patient is currently on clear liquid Objective Vital Signs Date Time Temp Pulse Resp B/P (MAP) Pulse Ox O2 Delivery O2 Flow Rate FiO2 09/25/24 17:18 12 09/25/24 15:00 97.4 115 111/62 (78) 95 Nasal Cannula 4.0 09/25/24 07:44 21 Result Diagram: 09/25/24 0532 09/25/24 0532 General-patient not in any acute distress, alert awake oriented, chronically ill-appearing, signs of memory loss present HEENT-atraumatic normocephalic, neck supple without elevated JVD, no thyromegaly or carotid bruit. No lymphadenopathy bilaterally. Eyes-no icterus or pallor seen in eyes Chest-clear to auscultation bilaterally, breathing nonlabored no tachypnea, no wheezing, no crepitation, no crackles. Heart-S1-S2 normal, regular heart rate no murmur Abdomen bowel sounds positive on auscultation, soft nondistended , signs of discomfort present on palpation over surgical site. surgical dressing present over abdomen, no guarding, no rigidity Skin no active skin rash Neurology-grossly intact, nonfocal alert awake , signs of xwdh-cv-izverlkq dementia. cooperated during physical examination Extremity- no pedal edema able to move all 4 extremities Coagulation Studies Laboratory Tests Test 09/22/24 17:45 09/23/24 08:52 09/23/24 11:28 Prothrombin Time 11.3 SECONDS (9.0-12.0) INR International Normalized Ratio 1.1 INR APTT (Heparin Protocol) 100 SECONDS (45-60) *H Activated Partial Thromboplast Time 48 SECONDS (22-32) H Coagulation Comments Problem\Assessment\Plan # acute severe cholecystitis IV Zosyn 09/23 status post laparoscopic robotic cholecystectomy with adhesion lysis On a clear liquid diet 09/24 the patient continues to experience significant abdominal discomfort and cramping which per is to be expected due to the amount of adhesions the patient had in the severity of the patient's gallbladder disease/cholecystitis and anticipate the patient will be here hospitalized for a couple of more days # acute respiratory failure (with nocturnal oxygen use of 2 L at home also while sleeping) likely multifactorial including Acute exacerbation of chronic COPD IV Solu-Medrol Budesonide nebs 09/24 change DuoNeb to PRN as respiratory therapy assessed that the patient is possibly experiencing mild bronchial spasms with DuoNeb #Acute exacerbation of chronic HFrEF Continue Entresto Continue Jardiance No longer on carvedilol IV bumetanide Echocardiogram demonstrates an LVEF of 20- 25% on the preliminary report # permanent atrial fibrillation Continue amiodarone Restarted home dose of apixaban # aaj-rsrdtjb-mnxlxpmrr diabetes mellitus And a hyper and hypoglycemic protocol 09/24 blood glucose is poorly controlled and changed to a high dose sliding scale as well as added Lantus and postprandial insulin # chronic kidney disease Monitor daily metabolic panel to evaluate for possible MAINOR Patient's current condition is is guarded further management as recommended by surgical team we will continue to follow patient in a.m. Date of Service: Sep 25, 2024 Billing Provider: AMOS FLORES MD Common Visit Codes: [id number] INP/OBS CARE(HIGH) AMOS FLORES MD Sep 25, 2024 18:07
[2024-09-26] VITALS (13 sets, daily range): BP systolic 86–109; BP diastolic 50–68; PULSE 66–113; RESP 14–20; TEMP 97.2–97.9; O2SAT 93–99
[2024-09-26 06:50] LABS: MEAN PLATELET VOLUME 9.0 FL (7.4-10.4); RED CELL DISTRIBUTION WIDTH 16.5 % (11.5-14.5)
[2024-09-26 07:15] LABS: CREATININE 1.60 MG/DL (0.60-1.10); TOTAL CARBON DIOXIDE 30.5 MMOL/L (24-32); eCRCL 34 ML/MIN; eGFR 41 ML/MIN
[2024-09-26] MEDS: metoclopramide 5 mg/ml inj IV SCH (13:55)
--- NOTE | 2024-09-26 18:45 | PROGRESS NOTE ---
Daily Progress Note Providers to CC ~ Antibiotic Timeout Antibiotic Ordered?: Yes Subjective Patient was seen in room he was waiting to go to rehab. No other new concerns Objective Vital Signs Date Time Temp Pulse Resp B/P (MAP) Pulse Ox O2 Delivery O2 Flow Rate FiO2 09/26/24 15:00 97.3 110 18 109/58 (75) 96 Nasal Cannula 3.0 09/25/24 20:37 32 Result Diagram: 09/26/24 0552 09/26/24 0552 General-patient not in any acute distress, alert awake oriented, chronically ill-appearing, signs of memory loss present HEENT-atraumatic normocephalic, neck supple without elevated JVD, no thyromegaly or carotid bruit. No lymphadenopathy bilaterally. Eyes-no icterus or pallor seen in eyes Chest-clear to auscultation bilaterally, breathing nonlabored no tachypnea, no wheezing, no crepitation, no crackles. Heart-S1-S2 normal, regular heart rate no murmur Abdomen bowel sounds positive on auscultation, soft nondistended , signs of discomfort present on palpation over surgical site. surgical dressing present over abdomen, no guarding, no rigidity Skin no active skin rash Neurology-grossly intact, nonfocal alert awake , signs of oawh-rs-bsyjwyux dementia. cooperated during physical examination Extremity- no pedal edema able to move all 4 extremities Coagulation Studies Laboratory Tests Test 09/22/24 17:45 09/23/24 08:52 09/23/24 11:28 Prothrombin Time 11.3 SECONDS (9.0-12.0) INR International Normalized Ratio 1.1 INR APTT (Heparin Protocol) 100 SECONDS (45-60) *H Activated Partial Thromboplast Time 48 SECONDS (22-32) H Coagulation Comments Problem\Assessment\Plan # acute severe cholecystitis IV Zosyn 09/23 status post laparoscopic robotic cholecystectomy with adhesion lysis On a clear liquid diet 09/24 the patient continues to experience significant abdominal discomfort and cramping which per is to be expected due to the amount of adhesions the patient had in the severity of the patient's gallbladder disease/cholecystitis and anticipate the patient will be here hospitalized for a couple of more days # acute respiratory failure (with nocturnal oxygen use of 2 L at home also while sleeping) likely multifactorial including Acute exacerbation of chronic COPD IV Solu-Medrol Budesonide nebs 09/24 change DuoNeb to PRN as respiratory therapy assessed that the patient is possibly experiencing mild bronchial spasms with DuoNeb #Acute exacerbation of chronic HFrEF Continue Entresto Continue Jardiance No longer on carvedilol IV bumetanide Echocardiogram demonstrates an LVEF of 20- 25% on the preliminary report # permanent atrial fibrillation Continue amiodarone Restarted home dose of apixaban # vik-wazppot-xyqxmwlzi diabetes mellitus And a hyper and hypoglycemic protocol 09/24 blood glucose is poorly controlled and changed to a high dose sliding scale as well as added Lantus and postprandial insulin # chronic kidney disease Monitor daily metabolic panel to evaluate for possible MAINOR Patient's current condition is is guarded further management as recommended by surgical team we will continue to follow patient in a.m. Date of Service: Sep 26, 2024 Billing Provider: AMOS FLORES MD Common Visit Codes: [id number] INP/OBS CARE(HIGH) AMOS FLORES MD Sep 26, 2024 18:45
[2024-09-27] VITALS (9 sets, daily range): BP systolic 99–107; BP diastolic 60–64; PULSE 82–115; RESP 15–22; TEMP 97.5–98.1; O2SAT 93–99
[2024-09-27 06:47] LABS: MEAN PLATELET VOLUME 8.6 FL (7.4-10.4); RED CELL DISTRIBUTION WIDTH 16.3 % (11.5-14.5)
[2024-09-27 07:54] LABS: CREATININE 1.39 MG/DL (0.60-1.10); TOTAL CARBON DIOXIDE 32.5 MMOL/L (24-32); eCRCL 39 ML/MIN; eGFR 48 ML/MIN
--- NOTE | 2024-09-27 10:39 | RADIOLOGY REPORT ---
CHEST RADIOGRAPH Indication: acute respiratory failure Technique: Single frontal view of the chest was obtained Comparison: DI CHEST,SINGLE VIEW on DOS: 09/23/24, DI CHEST,SINGLE VIEW on DOS: 09/22/24, DI CHEST,SING LE VIEW on DOS: 06/24/24, DI CHEST,SINGLE VIEW on DOS: 12/15/23, DI CHEST,SINGLE VIEW on DOS: 12/14/23 FINDINGS: Lines and Tubes: Left pacemaker/AICD Lungs: No focal consolidation. Pleura: No effusion. No pneumothorax. Cardiomediastinal contours: Cardiomegaly Bones: No acute osseous abnormality. IMPRESSION: Cardiomegaly with CHF
--- NOTE | 2024-09-27 19:30 | DISCHARGE SUMMARY ---
Discharge Summary Providers to CC ~ Discharge Summary Admission Diagnosis: cholelithiasis/cholecystitis Hospital Course DATE OF ADMISSION: 09/22/2024 DATE OF DISCHARGE: 09/27/2024 Discharge Diagnosis\Comment: Acute cholecystitis Acute respiratory failure secondary to an acute exacerbation of chronic COPD and a acute exacerbation of chronic HFrEF Permanent atrial fibrillation Woe-qmyrclg-fndcvlbko diabetes mellitus MAINOR Operations\Procedures: Laparoscopic robotic cholecystectomy with adhesion lysis Consultants: Dr. Jaime Cabrera general surgeon Complications: None Condition on DC: Stable Continued Medications: Albuterol Sulfate (Proair Hfa) 8.5 Gm Hfa.aer.ad 2 PUFFS IH Q4H PRN for SOB or wheezing, #1 INHALER Amiodarone HCl* (Amiodarone HCl*) 200 Mg Tablet 1 TAB PO DAILY, 0 Refills Apixaban (Eliquis) 2.5 Mg Tablet 1 TAB PO Q12H for 30 Days, #60 TAB 0 Refills Bumetanide (Bumetanide) 2 Mg Tablet 1 TAB PO DAILY, TAB Citalopram Hydrobromide* (Celexa*) 20 Mg Tablet 1 TAB PO DAILY, TAB Clobetasol Propionate (Clobetasol Propionate) 0.05 % Cream..g. 1 APPLIC TOP DAILY for 30 Days, #60 GM 0 Refills apply to affected area(s) Dupilumab (Dupixent Pen) 300 Mg/2 Ml Pen.injctr 1 SYR SUBCUT Q2W for 28 Days, #4 ML 0 Refills Empagliflozin (Jardiance) 25 Mg Tablet 1 TAB PO DAILY, TAB 0 Refills Finasteride (Finasteride) 5 Mg Tablet 1 TAB PO DAILY Insulin Npl/Insulin Lispro (Humalog Mix 50-50 Kwikpen) 100 Unit/Ml (50-50) Insuln.pen 1 UNITS SQ, UNIT Ketoconazole* (Nizoral*) 200 Mg Tablet 1 TAB PO DAILY, TAB Pramipexole Di-Hcl (Pramipexole Dihydrochloride) 0.125 Mg Tablet 1 TAB PO HS, TAB 0 Refills Pravastatin Sodium (Pravastatin Sodium) 40 Mg Tablet 1 TABLET PO DAILY, #90 TABLET 1 Refill Tamsulosin Hcl* (Flomax*) 0.4 Mg Cap.sr.24h 1 CAP PO BID, CAP Tirzepatide (Mounjaro) 10 Mg/0.5 Ml Pen.injctr 1 UNIT SQ Q7D Discontinued Medications: Sacubitril/Valsartan (Entresto 24 mg-26 mg Tablet) 1 Each Tablet 1 TAB PO BID Discharge Summary: I admitted the patient with the following HPI:This is an 89-year-old male who woke up this morning and developed significant right upper quadrant abdominal pain after eating he denies any fever or chills was nauseated however. The patient decided to come to the ED he also has a cough with clear sputum production and significantly shortness of breath x1 day- the patient is significantly tachypneic when I have initially evaluated him which did improve after receiving IV Lasix and the patient has significant right upper quadrant abdominal tenderness with a positive Moore sign on exam and an ultrasound demonstrated acute cholecystitis. ED physician Dr. Mensah spoke with on-call surgeon Dr. Cabrera who requested the patient be medically improved prior to obtaining surgery. The patient is on IV Zosyn. His echocardiogram demonstrates an unchanged LVEF from most recent echocardiogram from June of 2024. The patient takes Eliquis at home however this medicine we will need to be held due to likely up when come in surgery I did place the patient on a heparin drip since he is at high-risk for thrombotic event without the heparin bolus however. The patient is admitted to PCU. The patient had a laparoscopic robotic cholecystectomy for severe cholecystitis as well as adhesion lysis with Dr. Cabrera surgeon- the patient initially experienced a significant amount of the abdominal discomfort postop however this did improve. The patient has a acute exacerbation of chronic COPD as well as acute exacerbation of chronic HFrEF his echocardiogram was unchanged from previous echocardiogram with a LVEF of 20-25%. The patient was treated with IV Bumex, the patient also received budesonide nebs as well as PRN albuterol neb. The patient was treated with IV Zosyn during hospitalization. The patient is heart failure medicines were continued. The patient has permanent atrial fibrillation and was treated with some dose of apixaban as well as continuing amiodarone The patient has type 2 diabetes mellitus requiring insulin in his blood sugars did improve during hospitalization the patient was transferred to rehab with a sliding scale insulin as well as insulin glargine at night and postprandial insulin. The patient was weak and required rehab. Gen. No acute distress alert and oriented 4 Lungs clear to ascultation bilaterally, no wheezes rales or rhonchi appreciated Heart normal sinus rhythm no murmurs rubs or clicks noted Abdomen soft mild generalized tenderness bowel sounds are normoactive Lower extremities no clubbing cyanosis, 1+ pitting edema appreciated bilaterally The patient felt ready to be discharged and was medically cleared to be discharged to a post acute rehab on 09/27/2024 The patient was seen and evaluated on day of discharge. Time spent on discharge 35 minutes *Problems/Diagnosis: (1) Cholecystitis Status: Acute Total Time Spent on D/C: > 30 Minutes Date of Service: Sep 27, 2024 Billing Provider: SHA MC DO Common Visit Codes: [id number] DISCH DAY >30min SHA MC DO Sep 27, 2024 19:30
[2024-09-29] MEDS ORDERED: TIRZEPATIDE 10 MG/0.5 ML SQ SCH (08:00)
[2024-10-03] MEDS ORDERED: DUPILUMAB 300 MG/2 ML SQ SCH (08:00)
== END 2024-09-27 15:01 | DRG 417 ==
LOC: ER 11:31 → ED HOLD 16:45 → PCU 3S 19:52
PROVIDERS: ADMIT Family Medicine; ATTEND Family Medicine
PROC: 8E0W4CZ Robotic Assisted Procedure of Trunk Region, Percutaneous Endoscopic Approach (ICD-10-PCS; 2024-09-23)
PROC: 0FN44ZZ Release Gallbladder, Percutaneous Endoscopic Approach (ICD-10-PCS; 2024-09-23)
PROC: 0F9430Z Drainage of Gallbladder with Drainage Device, Percutaneous Approach (ICD-10-PCS; 2024-09-23)
PROC: 0FT44ZZ Resection of Gallbladder, Percutaneous Endoscopic Approach (ICD-10-PCS; principal; 2024-09-23 12:34)
DX: K80.00 Calculus of gallbladder with acute cholecystitis without obstruction (principal); I50.23 Acute on chronic systolic (congestive) heart failure; J96.00 Acute respiratory failure, unspecified whether with hypoxia or hypercapnia; I48.21 Permanent atrial fibrillation; I13.0 Hypertensive heart and chronic kidney disease with heart failure and stage 1 through stage 4 chronic kidney disease, or unspecified chronic kidney disease; J44.1 Chronic obstructive pulmonary disease with (acute) exacerbation; N17.9 Acute kidney failure, unspecified; I25.10 Atherosclerotic heart disease of native coronary artery without angina pectoris; E78.00 Pure hypercholesterolemia, unspecified; E11.22 Type 2 diabetes mellitus with diabetic chronic kidney disease; N18.9 Chronic kidney disease, unspecified; K82.8 Other specified diseases of gallbladder; Z96.652 Presence of left artificial knee joint; Z88.2 Allergy status to sulfonamides; Z88.8 Allergy status to other drugs, medicaments and biological substances; Z79.01 Long term (current) use of anticoagulants; Z95.810 Presence of automatic (implantable) cardiac defibrillator; Z79.899 Other long term (current) drug therapy; Z95.5 Presence of coronary angioplasty implant and graft; Z90.49 Acquired absence of other specified parts of digestive tract; Z85.51 Personal history of malignant neoplasm of bladder; Z87.891 Personal history of nicotine dependence
CPT/HCPCS: 36415; 71045; 74176; 76700; 80048; 80053; 80076; 82948; 83036; 83690; 83735; 83880; 84145; 84484; 85025; 85610; 85651; 85730; 87081; 88304; 93005; 93308; 94640; 94760; 96361; 96365; 96375; 97116; 97162; 97530; 99285; A4215; A4615; A4618; A6209; A6212; A6258; A6402; A6446; A6449; A6455; A6590; A7000; G0378; J0131; J0696; J1171; J1250; J1644; J1815; J1938; J2003; J2250; J2270; J2371; J2405; J2470; J2543; J2704; J2765; J2919; J3010; J3490; J7030; J7040; J7120; P9045; Q9963

== ENCOUNTER 2024-10-11 14:38 | Emergency (ER) | payer MEDICARE ==
[~2024-10-11] VITALS: Ht 177.8 cm; Wt 121.8 kg
[~2024-10-11 14:38] MED LIST changes: +BUME2TAB7 PO; -CARV6.253 PO; +CITA-178 PO; +EMPA25TA PO; +INSU100I7 SQ; +KETO200T15 PO; +PRAM0.129 PO; -SACU1TAB PO; +TIRZ10PE SQ
[2024-10-11 15:29] VITALS: TEMP 98.4
[2024-10-11 17:38] VITALS: BP 129/69; PULSE 73; RESP 16; O2SAT 94
--- NOTE | 2024-10-11 18:49 | Physician Documentation ---
History of Present Illness ~ Chief Complaint: Mechanical Fall Stated Complaint: WEAKNESS Time Seen by MD: 18:24 OK to notify your PCP?: Yes Primary Medical Doctor: Ambrosio Source: patient, family, EMS, EMS notes reviewed Mode of Arrival: EMS Exam Limitations: no limitations HPI Chief Complaint: Fall Caveat: None Independent Historians: , paramedics History of Present Illness: Patient is an 89-year-old man that was discharged today from [facility]. Patient was there one week after being discharged here for cholecystectomy. Patient had been home 2 hours when he fell in the kitchen. His legs just became weak. Patient denies any significant injury. He fell on his bottom denies hitting his head. Denies any neck pain. Denies back pain. Denies any extremity pain. Denies any loss of consciousness. Patient complains of some mild 3/10 left hip pain. Patient is able to ambulate. Paramedics brought him in from home after a lift assist from the fire rescue. Patient has no other complaints. Review of systems: All systems were reviewed and are negative except for what is indicated in the history of present illness. Past Medical History: COPD, CHF EFr EF, type 2 diabetes, atrial fibrillation, HLD Past Surgical History: Pacemaker, September 23 2024 cholecystectomy Social History: , no tobacco use, no alcohol use, no drug use Medications: Reviewed as documented Nursing Notes Allergies: Reviewed as documented in Nursing Notes Medication Reconciliation Allergies: Coded Allergies: Sulfa (Sulfonamide Antibiotics) (Verified Allergy, Unknown, 10/11/24) itchy/rash lisinopril (Verified Allergy, Unknown, 10/11/24) Scheduled Amiodarone HCl* (Amiodarone HCl*), 1 TAB PO DAILY, (Reported) Apixaban (Eliquis), 1 TAB PO Q12H, (Reported) Bumetanide (Bumetanide), 1 TAB PO DAILY, (Reported) Citalopram Hydrobromide* (Celexa*), 1 TAB PO DAILY, (Reported) Clobetasol Propionate (Clobetasol Propionate), 1 APPLIC TOP DAILY, (Reported) Dupilumab (Dupixent Pen), 1 SYR SUBCUT Q2W, (Reported) Empagliflozin (Jardiance), 1 TAB PO DAILY, (Reported) Finasteride (Finasteride), 1 TAB PO DAILY, (Reported) Ketoconazole* (Nizoral*), 1 TAB PO DAILY, (Reported) Pramipexole Di-Hcl (Pramipexole Dihydrochloride), 1 TAB PO HS, (Reported) Pravastatin Sodium (Pravastatin Sodium), 1 TABLET PO DAILY, (Reported) Tamsulosin Hcl* (Flomax*), 1 CAP PO BID, (Reported) Tirzepatide (Mounjaro), 1 UNIT SQ Q7D, (Reported) Scheduled PRN Albuterol Sulfate (Proair Hfa), 2 PUFFS IH Q4H PRN for SOB or wheezing, (Reported) Miscellaneous Medications Insulin Npl/Insulin Lispro (Humalog Mix 50-50 Kwikpen), 1 UNITS SQ, (Reported) Past Medical History Past Medical History: Atrial Fibrillation, Coronary Artery Disease, Congestive Heart Failure, High Cholesterol, Hypertension, COPD, Diabetes Past Surgical History: angioplasty, pacemaker Other Past Surgical History: Cardiac stents Patient History: [place] cancer age 80 FATHER, , Age: 60 years and older, Cause: Cancer MOTHER, , Age: 30's - 40, Cause: Deep vein thrombosis Alcohol Use: Occasionally Drug Use: none Lives with: Spouse Lives In: Home Occupation: retired Review of Systems All Other Systems at this time: Reviewed and Negative ROS Patient denies any other acute symptoms other than above. All other systems are negative Physical Exam Vital Signs: RN Vital Signs have been reviewed: Yes, Temperature: 98.4, Source: Oral, Heart Rate: 73, Respiratory Rate: 16, BP: 129/69, Pulse Oximetry: 94, Weight: 121.820 Oxygen Flow Rate: 3.0 Pulse Oximetry Reflects: adequate oxygenation Physical Exam General Appearance: No distress, obese, chronically ill-appearing HEENT: Normal OP, moist oral mucosa, PERRL, EOMI, abrasion to the left forehead that is from him having scratched himself. Neck: supple, normal ROM, trachea midline Pulmonary: No respiratory distress, CTA, BS equal Cardiac: RRR, no murmur, rub or gallop, GI: nondistended, soft, nontender, normal bowel sounds, no guarding, no rebound Extremities: normal ROM, no swelling, non-tender, hips are nontender with normal range of motion. Lower extremity edema 3+ on the right and 2+ on the left with some skin ulcers on both legs that are covered by a dressing. Skin: intact, dry, warm, no rashes Neuro: AAOx3, speech is clear, no focal motor weakness Psych: normal affect, good eye contact, no apparent hallucination, normal speech Progress Results/Orders Results/Orders Orders - ROB DUNCAN MD Gait Test (10/11/24 18:27) Vital Signs 10/11/24 10/11/24 10/11/24 10/11/24 15:29 15:40 16:30 17:25 Temp 98.4 Pulse 47 72 72 Resp 18 16 18 B/P (MAP) 108/68 115/67 (83) 111/76 (88) Pulse Ox 97 96 93 O2 Flow Rate 0 3.0 3.0 10/11/24 10/11/24 17:36 17:38 Pulse 73 Resp 16 B/P (MAP) 129/69 (89) Pulse Ox 93 94 O2 Delivery Nasal Cannula* O2 Flow Rate 3 3.0 FiO2 N/A Laboratory Tests Test 10/11/24 17:29 Glucometer 164 H Medical Decision Making Findings Differential diagnosis includes but is not limited to: Hip fracture, pelvic fracture, other fractures, contusion, minor closed head injury Emergency department course/medical decision-making: Patient had a mechanical fall at home. After physical exam there does not appear to be any medical need for imaging. There was no evidence of a head injury. There was no clinical suspicion for any fractures including a hip fracture. All this was discussed with the patient and his . They are in agreement. Patient has been ambulated in his walking with his walker. Patient is stable for discharge. Patient is given instructions on how to avoid falling and to ask his for assistance and to use his walker when moving and walking at home. Departure Time of Disposition: 18:48 Disposition: 01 HOME / SELF CARE / HOMELESS Impression: Primary Impression: Contusion of right hip Qualified Codes: S70.01XA - Contusion of right hip, initial encounter Condition: Stable Discharge Instructions: Fall Prevention in the Home, Adult, [id number], Contusion Additional Instructions: FOLLOW UP WITH YOUR DOCTOR NEEDED. CONTINUE ALL YOUR CURRENT MEDICATIONS. USE YOUR WALKER AT HOME TO AMBULATE AND ASK YOUR FOR ASSISTANCE NEEDED. Education Educated: Patient, Family Educated regarding: diagnosis, treatment, need for follow up Signature Scribe Signature: No scribe Attestation: No scribe ROB DUNCAN MD Oct 11, 2024 18:49
== END 2024-10-11 18:57 | disposition home or self-care (01) ==
LOC: ER 14:38
DX: S70.01XA Contusion of right hip, initial encounter (principal); S00.81XA Abrasion of other part of head, initial encounter; E11.9 Type 2 diabetes mellitus without complications; E78.00 Pure hypercholesterolemia, unspecified; I25.10 Atherosclerotic heart disease of native coronary artery without angina pectoris; I48.91 Unspecified atrial fibrillation; I11.0 Hypertensive heart disease with heart failure; I50.9 Heart failure, unspecified; J44.9 Chronic obstructive pulmonary disease, unspecified; Z95.0 Presence of cardiac pacemaker; Z90.49 Acquired absence of other specified parts of digestive tract; Z95.5 Presence of coronary angioplasty implant and graft; Z88.2 Allergy status to sulfonamides; Z88.8 Allergy status to other drugs, medicaments and biological substances; Z79.899 Other long term (current) drug therapy; Z72.89 Other problems related to lifestyle; W18.39XA Other fall on same level, initial encounter; Y93.89 Activity, other specified; Y92.89 Other specified places as the place of occurrence of the external cause; Y99.8 Other external cause status
CPT/HCPCS: 82948; 99284

== ENCOUNTER 2024-10-22 12:52 | Outpatient (CLI) | payer MEDICARE ==
--- NOTE | 2024-10-22 14:43 | VASCULAR REPORT ---
VASC VL VENOUS HISTORY: swelling COMPARISON: None TECHNIQUE: Duplex doppler evaluation of the deep venous system of the lower extremity from the common femoral veins, superficial femoral vein, great saphenous vein, deep femoral vein, popliteal vein, an d calf veins, including color doppler and spectral/pulsed waveform analysis, was performed. FINDINGS: Right: - Common femoral vein: Compressible - Deep femoral vein: Compressible - Femoral vein: Compressible - Popliteal vein: Compressible - Posterior tibial vein: Waveforms present - Other: Nothing Left: - Common femoral vein: Compressible - Deep femoral vein: Compressible - Femoral vein: Compressible - Popliteal vein: Compressible - Posterior tibial vein: Waveforms present - Peroneal vein: Waveforms present - Other: Nothing IMPRESSION: No right or left lower extremity deep venous thrombosis.
== END 2024-10-22 23:59 | disposition home or self-care (01) ==
LOC: VAS 12:52
PROVIDERS: ATTEND Surgery
DX: R22.41 Localized swelling, mass and lump, right lower limb (principal); R22.42 Localized swelling, mass and lump, left lower limb; M79.89 Other specified soft tissue disorders; M79.604 Pain in right leg; I82.409 Acute embolism and thrombosis of unspecified deep veins of unspecified lower extremity
CPT/HCPCS: 93970

== ENCOUNTER 2024-12-03 10:50 | Emergency (ER) | payer MEDICARE ==
[~2024-12-03] VITALS: Ht 177.8 cm; Wt 134.6 kg
[2024-12-03 11:07] VITALS: BP 109/62; PULSE 74; RESP 18; TEMP 97.7; O2SAT 96
--- NOTE | 2024-12-03 11:34 | RADIOLOGY REPORT ---
DI SHOULDER, COMPLETE (MIN 2 VWS) INDICATION: RT.Shoulder Pain TECHNICAL DATA: 3 views were obtained of the left shoulder. COMPARISON: None FINDINGS: There is no fracture or focal bone abnormality. The glenohumeral joint is normally maintained. The acromioclavicular joint appears degenerative. The humeral head is not high riding. Adjacent soft tissues are within normal limits. IMPRESSION: No acute fracture or dislocation of the left shoulder.
[2024-12-03] MEDS ORDERED: CYCL-1 PO (13:43)
--- NOTE | 2024-12-03 13:44 | Physician Documentation ---
History of Present Illness ~ Chief Complaint: Shoulder pain Stated Complaint: SHOULDER PAIN Time Seen by MD: 13:41 Primary Medical Doctor: Ambrosio HINDS Patient is seen today with complaints of right-sided shoulder pain after physical therapy last Monday a few days ago. Patient states he is having significant pain in that area and denies any trauma or fall. He has no other concern or complaint at this time Medication Reconciliation Allergies: Coded Allergies: Sulfa (Sulfonamide Antibiotics) (Verified Allergy, Unknown, 12/03/24) itchy/rash lisinopril (Verified Allergy, Unknown, 12/03/24) Scheduled Amiodarone HCl* (Amiodarone HCl*), 1 TAB PO DAILY, (Reported) Apixaban (Eliquis), 1 TAB PO Q12H, (Reported) Bumetanide (Bumetanide), 1 TAB PO DAILY, (Reported) Citalopram Hydrobromide* (Celexa*), 1 TAB PO DAILY, (Reported) Clobetasol Propionate (Clobetasol Propionate), 1 APPLIC TOP DAILY, (Reported) Dupilumab (Dupixent Pen), 1 SYR SUBCUT Q2W, (Reported) Empagliflozin (Jardiance), 1 TAB PO DAILY, (Reported) Finasteride (Finasteride), 1 TAB PO DAILY, (Reported) Ketoconazole* (Nizoral*), 1 TAB PO DAILY, (Reported) Pramipexole Di-Hcl (Pramipexole Dihydrochloride), 1 TAB PO HS, (Reported) Pravastatin Sodium (Pravastatin Sodium), 1 TABLET PO DAILY, (Reported) Tamsulosin Hcl* (Flomax*), 1 CAP PO BID, (Reported) Tirzepatide (Mounjaro), 1 UNIT SQ Q7D, (Reported) Scheduled PRN Albuterol Sulfate (Proair Hfa), 2 PUFFS IH Q4H PRN for SOB or wheezing, (Reported) Miscellaneous Medications Insulin Npl/Insulin Lispro (Humalog Mix 50-50 Kwikpen), 1 UNITS SQ, (Reported) Past Medical History Past Medical History: Atrial Fibrillation, Coronary Artery Disease, Congestive Heart Failure, High Cholesterol, Hypertension, COPD, Diabetes Past Surgical History: angioplasty, pacemaker Other Past Surgical History: Cardiac stents Patient History: [place] cancer age 80 FATHER, , Age: 60 years and older, Cause: Cancer MOTHER, , Age: 30's - 40, Cause: Deep vein thrombosis Alcohol Use: Occasionally Drug Use: none Lives with: Spouse Lives In: Home Occupation: retired Physical Exam Vital Signs: Temperature: 97.7, Source: Oral, Heart Rate: 74, Respiratory Rate: 18, BP: 109/62, Pulse Oximetry: 96, Weight: 134.600 Oxygen Flow Rate: 0 Progress Results/Orders Results/Orders Vital Signs 12/03/24 11:07 Temp 97.7 Pulse 74 Resp 18 B/P (MAP) 109/62 Pulse Ox 96 O2 Flow Rate 0 Departure Disposition: 01 HOME / SELF CARE / HOMELESS Impression: Primary Impression: Shoulder pain Qualified Codes: M25.511 - Pain in right shoulder Additional Impression: Muscle spasm Condition: Stable Discharge Instructions: Shoulder Pain Additional Instructions: Patient is seen today with complaints of right-sided shoulder pain after physical therapy last Monday a few days ago. Patient states he is having significant pain in that area and denies any trauma or fall. He has no other concern or complaint at this time Referrals: NO PRIMARY CARE PROVIDER (PCP) Prescriptions Cyclobenzaprine* (Cyclobenzaprine*) 10 Mg Tablet 1 TAB PO BID for muscle spasms for 10 Days, #20 TAB 0 Refills Prov: YAZMIN TRAVIS 12/03/24 Signature Scribe Signature: No scribe Attestation: No scribe YAZMIN TRAVIS Dec 03, 2024 13:44
== END 2024-12-03 14:06 | disposition home or self-care (01) ==
LOC: ER 10:51
DX: M25.511 Pain in right shoulder (principal); M62.838 Other muscle spasm; I11.0 Hypertensive heart disease with heart failure; I50.9 Heart failure, unspecified; I25.10 Atherosclerotic heart disease of native coronary artery without angina pectoris; E78.00 Pure hypercholesterolemia, unspecified; E11.9 Type 2 diabetes mellitus without complications; I48.91 Unspecified atrial fibrillation; J44.9 Chronic obstructive pulmonary disease, unspecified; Z88.2 Allergy status to sulfonamides; Z88.8 Allergy status to other drugs, medicaments and biological substances; Z95.5 Presence of coronary angioplasty implant and graft; Z79.899 Other long term (current) drug therapy; Z72.89 Other problems related to lifestyle; Z95.0 Presence of cardiac pacemaker
CPT/HCPCS: 73030; 99284; A6402; A6449